=== PATIENT | male | born 2000 | race Caucasian/White ===

== ENCOUNTER → 2019-11-24 14:36 | Outpatient (BNVA) | payer OTHER, SELFPAY | PROVIDERS: Family Provider Nurse Practitioner; PCP Nurse Practitioner; Visit Provider Nurse Practitioner Family | DX: Z11.59 Encounter for screening for other viral diseases (principal) | CPT/HCPCS: 87635 ==

== ENCOUNTER 2019-12-22 00:16 | Emergency (ER) | payer SELFPAY ==
[2019-12-22 00:20] VITALS: BP 131/81; RESP 17; TEMP 36.7; O2SAT 98; BMI 30.1
--- NOTE | 2019-12-22 00:23 | XRR_ITS ---
PROCEDURE INFORMATION: Exam: XR Right Foot Complete Exam date and time: 12/22/2019 12:37 AM Age: 19 years old Clinical indication: Injury or trauma; Injury history: Hit great toe on sidewalk; Initial encounter; Toes; Right; Injury date: 12/21/19; Patient HX: C/O pain after hitting RT great toe on sidewalk- abrasion noted TECHNIQUE: Imaging protocol: XR Right foot. Views: 3 or more views. COMPARISON: CR Toe RIGHT [id number] 06/13/2018 6:59 PM FINDINGS: Bones/joints: hindfoot-midfoot and midfoot-forefoot articulations are normal. metatarsals and the phalanges without an acute process. subtalar joint and the tibiotalar joint appears normal. Soft tissues: Normal. XR/XR foot RT min 3V* [id number] IMPRESSION: Normal foot
--- NOTE | 2019-12-22 01:35 | W.ED.EXTPRO ---
HPI - Extremity Problem General: Chief complaint: Extremity Injury, Lower Stated complaint: FALL Time Seen by Provider: 12/22/19 01:32 History of Present Illness: HPI Narrative: Patient is a 19-year-old male who comes to the ED with right foot injury. Patient says he tripped over his dog causing him to slide his right foot into a concrete wall. He now has 2 abrasions on his right foot. Patient says he had his last tetanus within the past 2 years. Patient says all of his pain is from the 2 abrasions on the skin of his right foot. Associated symptoms: Deny chest pain, fever(s) or rash Review of Systems Const: Denies: fever(s), chills or fatigue Eyes: Denies: change in vision or eye discomfort ENMT: Denies: throat pain, odynophagia, nasal discharge or nasal congestion Card: Denies: chest pain, palpitations, edema, swelling of feet/ankles, dyspnea on exertion or orthopnea Resp: Denies: dyspnea, productive cough or non-productive cough GI: Denies: abdominal pain, nausea, vomiting, diarrhea, constipation or hematochezia : Denies: flank pain, difficulty urinating, dysuria or hematuria Musc: Denies: neck pain, back pain or extremity swelling Skin/Breast: Reports: new lesions (2 abrasions on right foot.); Denies: rash Neuro: Denies: headache(s), numbness in extremities or weakness in extremities [facility] PFSH: Social History Smoking and tobacco status: never smoked Physical Exam Const: COMMON NORMALS: no acute distress, patient oriented x3, healthy appearing and alert GENERAL APPEARANCE: cooperative and comfortable HENMT: COMMON NORMALS: normocephalic HEAD & SCALP: normocephalic MOUTH: Normal oral and palatal mucosa present THROAT: posterior oropharynx normal and uvula midline Neck/C-Spine: COMMON NORMALS: supple GENERAL: Yes normal visual inspection Resp: COMMON NORMALS: normal respiratory effort, No retractions, No use of accessory muscles and clear to auscultation bilaterally AUSCULTATION: clear to auscultation bilaterally Cardio: COMMON NORMALS: regular rate, regular rhythm, S1 normal heart sound present, S2 normal heart sound present, No gallops present (Cardio), No clicks present (Cardio), No murmurs present (Cardio) and Peripheral pulses 2+ throughout RATE: regular rate RHYTHM: regular rhythm HEART SOUNDS: S1 normal heart sound present and S2 normal heart sound present PERIPHERAL PULSES: Peripheral pulses 2+ throughout GI: COMMON NORMALS: Normal to inspection, nondistended, normoactive bowel sounds present, Soft to palpation, non-tender and no masses PALPATION: Yes Soft to palpation : COMMON NORMALS: Yes no CVA tenderness BLADDER/KIDNEY EXAM: Yes no CVA tenderness Back/Pelvis: COMMON NORMALS: no CVA tenderness Extremity: NARRATIVE EXTREMITY EXAM: 2 superficial abrasions on right foot. GENERAL: Yes normal exam except as noted Neuro: COMMON NORMALS: patient oriented x3 and moves all extremities SENSORIUM/ORIENTATION: Yes alert Skin: GENERAL SKIN EXAM: dry skin TRAUMA: abrasion (2 superficial abrasions on right foot. No active bleeding.) Course Vital Signs: Vital signs: Vital Signs Temperature 98.0 F 12/22/19 00:20 Pulse Rate 78 12/22/19 02:32 Respiratory Rate 16 12/22/19 02:32 Blood Pressure 117/77 12/22/19 02:32 Pulse Oximetry 100 12/22/19 02:32 MDM - Extremity (Nontraumatic) MDM Narrative: Medical decision making narrative: Patient is a 19-year-old male comes the ED with right foot injury. Patient has 2 superficial abrasions on right foot. Patient had tetanus shot within the last 2 years. Right foot x-ray showed no acute fractures or findings. The 2 superficial abrasions were irrigated with normal saline and bacitracin and bandages were placed over the 2 abrasions by the nurse. Patient was also given prophylactic prescription for cephalexin. Patient was told to clean and re-bandage and apply bacitracin daily. Follow-up with PCP in 7 to 10 days. Return to ED precautions given and I discussed with him signs and symptoms of infection. Patient understood and agreed with plan. Imaging Data^: Xray Ortho: Attestation: I personally reviewed and interpreted this imaging study as follows: My impression: Right foot x-ray showed no acute fractures or findings. Discharge Plan Discharge Patient Disposition: Home Clinical Impression: Abrasion foot/toe Qualifiers: Encounter type: initial encounter Laterality: right Qualified Code(s): S90.811A - Abrasion, right foot, initial encounter Condition: Stable Prescriptions: New cephalexin 500 mg capsule 500 mg PO TID 4 Days Qty: 12 RF: 0 Neosporin ([id number]) 3.5mg-400 unit- 5,000 unit/gram ointment 1 applic TOPICAL DAILY Qty: 14.2 RF: 0 No Action No Known Home Medications RF: 0 Discharge Orders: Discharge Order (Routine); Ordered 12/22/19 Ordered By: Jaime Bell Discharge Diet: Regular Discharge Activity: Increase activity as tolerated Patient Instructions: Abrasion (ED) Activity Restrictions/Additional Instructions: Follow-up with medical provider as directed in 7-10 days. Take medications as prescribed. Change bandage, clean and reapply Neosporin daily. Watch for signs of infection such as increased redness, tenderness, warmth and puslike drainage. If you see any signs of infection return to the ED or urgent care to be reevaluated. Return to the ER or your medical provider if condition worsens. Please read and understand discharge instructions. If any questions, please ask. 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
[2019-12-22] MEDS: bacitracin ointment Pkt 1 EACH TOPICAL (02:27)
[2019-12-22] MEDS: cephALEXin 500 mg Capsule PO (02:28)
[2019-12-22 02:32] VITALS: BP 117/77; PULSE 78; RESP 16; O2SAT 100
== END 2019-12-22 02:35 | disposition home or self-care (01) ==
PROVIDERS: Emergency Provider Physician Assistant
DX: S90.811A Abrasion, right foot, initial encounter (principal); W01.0XXA Fall on same level from slipping, tripping and stumbling without subsequent striking against object, initial encounter
CPT/HCPCS: 12345; 73630; 99281; 99283

== ENCOUNTER 2020-01-15 18:16 | Emergency (ER) | payer SELFPAY ==
[2020-01-15 18:18] VITALS: BP 127/71; PULSE 132; RESP 16; TEMP 37.6; O2SAT 98; BMI 28.7
--- NOTE | 2020-01-15 18:57 | ED_ITS ---
HPI - Nausea/Vomiting/Diarrhea General: Chief complaint: Nausea/Vomiting/Diarrhea Stated complaint: vomiting/fever x 2days Time Seen by Provider: 01/15/20 18:54 History of Present Illness: HPI Narrative: Patient is a 19-year-old male comes to the ED with fever, nausea and vomiting. Patient says symptoms started yesterday. He states his nausea is rated 10 out of 10 and he has had approximately 3 episodes of emesis since yesterday. He has a decreased appet ite, but has been able to drink water and keep it down. Patient says he has some mild abdominal pain in the periumbilical region. Denies diarrhea, constipation, dysuria, hematuria, chest pain, shortness of breath, cough, sore throat, nasal drainage and congestion. Patient also reports having a headache. Associated nausea: Yes Associated symtoms: Reports headache(s) and nausea; Denies change in vision, chest pain, dysuria, fatigue or palpitations Review of Systems Const: Reports: fever(s); Denies: chills or fatigue Eyes: Denies: change in vision or eye discomfort ENMT: Denies: throat pain, odynophagia, nasal discharge or nasal congestion Card: Denies: chest pain, palpitations, edema, swelling of feet/ankles, dyspnea on exertion or orthopnea Resp: Denies: dyspnea, productive cough or non-productive cough GI: Reports: abdominal pain, nausea and vomiting; Denies: diarrhea, constipation or hematochezia : Denies: flank pain, difficulty urinating, dysuria or hematuria Musc: Denies: neck pain, back pain or extremity swelling Skin/Breast: Denies: rash or new lesions Neuro: Reports: headache(s); Denies: numbness in extremities or weakness in extremities PFS ED PFSH: Social History Smoking and tobacco status: never smoked Physical Exam Const: COMMON NORMALS: no acute distress, patient oriented x3, healthy appear ing and alert GENERAL APPEARANCE: cooperative and comfortable HENMT: COMMON NORMALS: normocephalic HEAD & SCALP: normocephalic MOUTH: Normal oral and palatal mucosa present THROAT: posterior oropharynx normal and uvula midline Eye: COMMON NORMALS: Equal, round and reactive pupils present PUPIL: Yes Equal, round and reactive pupils present Neck/C-Spine: COMMON NORMALS: supple GENERAL: Yes normal visual inspection Resp: COMMON NORMALS: normal respiratory effort, No retractions, No use of accessory muscles and clear to auscultation bilaterally AUSCULTATION: clear to auscultation bilaterally Cardio: COMMON NORMALS: regular rate, regular rhythm, S1 normal heart sound present, S2 normal heart sound present, No gallops present (Cardio), No clicks present (Cardio), No murmurs present (Cardio) and Peripheral pulses 2+ throughout RATE: regular rate RHYTHM: regular rhythm HEART SOUNDS: S1 normal heart sound present and S2 normal heart sound present PERIPHERAL PULSES: Peripheral pulses 2+ throughout GI: COMMON NORMALS: Normal to inspection, nondistended, normoactive bowel sounds present, Soft to palpation and no masses PALPATION: Yes Soft to palpation and Yes Tenderness to palpation present (GI) Details: other (Periumbilical?mild tenderness.) : COMMON NORMALS: Yes no CVA tenderness BLADDER/KIDNEY EXAM: Yes no CVA tenderness Back/Pelvis: COMMON NORMALS: no CVA tenderness Extremity: COMMON NORMALS: normal to inspection and no pedal edema Neuro: COMMON NORMALS: patient oriented x3 and moves all extremities SENSORIUM/ORIENTATION: Yes alert Skin: COMMON NORMALS: no rashes or lesions noted GENERAL SKIN EXAM: no rashes or lesions noted and dry skin Course Reevaluation(s): Reevaluation #1: Patient headache and nausea has improved greatly with Zofran and Toradol. He was also given IV fluids. Patient says he feels a lot better and is ready to go home. Time: 20:45 Vital Signs: Vital signs: Vital Signs Temperature 99.7 F H 01/15/20 18:18 Pulse Rate 71 01/15/20 22:08 Respiratory Rate 16 01/15/20 21:07 Blood Pressure 136/62 01/15/20 22:08 Pulse Oximetry 97 01/15/20 22:08 MDM - Nausea/Vomiting/Diarrhea MDM Narrative: Medical decision making narrative: Patient is a 19-year-old male who comes to the ED with nausea and vomiting, fever and headache. Symptoms started yesterday. Patient had no cough, congestion, sore throat, shortness of breath or chest pain. Patient was tested for COVID-19 a week ago and was negative. White blood cell count 12.6 and rest of CBC and CMP was unremarkable. UA showed no signs of UTI. Blood pressure 136/62, pulse 71, respirations 16, temp 99.7 and O2 sat 97% on room air. CT of the abdomen showed no acute abdominal findings. There was a right lung nodule seen, and radiologist recommended further evaluation via outpatient. I discussed CT findings with patient and told him about the lung nodule and that he needs to talk to his PCP about further evaluation of lung nodule. Patient was given IV fluids, Zofran and Toradol while here in the ED and his headache greatly improved and his nausea greatly improved. Patient was diagnosed with nausea vomiting and sent home with a prescription for Zofran. He was told to follow-up with his PCP in 7 to 10 days. Return precautions given. Patient understood and agreed with plan. Lab Data: Attestation: I reviewed the patient's lab results. Labs: Lab Results 01/15/20 01/15/20 01/15/20 Range/Units 19:30 19:30 21:06 WBC 12.6 (4.5-13.0) 10^3/ uL RBC 5.82 H (4.1-5.3) 10^6/u L Hgb 17.5 H (11.7-16.6) g/dL Hct 51.3 (42.0-52.0) % MCV 88.1 (80-94) fL MCH 30.1 (28.0-34.0) pg MCHC 34.1 (30.0-36.0) g/dL RDW 11.9 L (12.1-15.1) % Plt Count 263 (130-400) 10^3/c mm MPV 10.1 (7.4-10.4) fL Neut % (Auto) 80.0 % Lymph % (Auto) 7.8 % Dooly % (Auto) 11.7 % Eos % (Auto) 0.0 % Baso % (Auto) 0.3 % Neut # (Auto) 10.03 H (1.8-8.0) 10^3/u L Lymph # (Auto) 1.0 L (1.5-6.5) 10^3/u L Dooly # (Auto) 1.5 H (0.2-0.9) 10^3/u L Eos # (Auto) 0.0 (0.0-0.8) 10^3/u L Baso # (Auto) 0.0 (0.0-0.1) 10^3/u L Nucleated RBC % (a uto) 0 % Nucleated RBCs # 0.0 /100WBC Sodium 134 L (136-145) mmol/L Potassium 4.0 (3.5-5.1) mmol/L Chloride 96 L (98-107) mmol/L Carbon Dioxide 26 (22-29) mmol/L Anion Gap 16.0 (5-19) BUN 16 (6-20) mg/dL Creatinine 1.0 (0.7-1.2) mg/dL GFR Calculation 95.3 (90-130) mL/min Glucose 112 (65-115) mg/dL Calculated Osmolal ity 280 L (285-295) mOsm/k g Calcium 9.4 (8.5-10.5) mg/dL Total Bilirubin 0.9 (0.15-1.2) mg/dL AST 19 (0-40) U/L ALT 29 (0-41) U/L Alkaline Phosphata se 70 (40-130) IU/L Total Protein 7.8 (6.6-8.7) g/dL Albumin 4.7 (3.5-5.2) g/dL Globulin 3.1 (1.3-4.6) g/dL Lipase 16 (13-60) U/L Urine Color Yellow (Yellow) Urine Appearance Clear (CLEAR) Urine pH 6.5 (5-7) Ur Specific Gravit y 1.005 (1.005-1.030) Urine Protein 1+ H (Negative) Urine Glucose (UA) Norm (Normal) Urine Ketones 1+ H (Negative) Urine Blood 2+ H (Negative) Urine Nitrate Negative (Negative) Urine Bilirubin 1+ H (Negative) Urine Urobilinogen 4+ H (Negative) mg/dL Ur Leukocyte Kiesha ase Trace H (Negative) Urine RBC 0-4 H (0-2) /hpf Urine WBC 0-4 H (0-5) /hpf Ur Squamous Epith Cells 15-25 H (0-5) /hpf Amorphous Sediment Not Reportable Urine Bacteria Trace (NONE) /hpf Imaging Data^: CT Abd/Pel: Attestation: I personally reviewed and interpreted this imaging study as follows: Radiologist's impression: [facility] [address] [place] [address] CT Scan Report Signed Patient: Francesco Dumont Unit #: [id number] : 2000 Age/Sex: 19 / M ADM Date: 01/15/20 Loc: ER Room/Bed: Attending Dr: Ordering Provider/Ordering MD: Jaime Bell Date of Service: 01/15/20 Procedure(s): CT abdomen pelvis w con* [id number] Accession Number(s): [id number] Report Number: [id number] PROCEDURE INFORMATION: Exam: CT Abdomen And Pelvis With Contrast Exam date and time: 01/15/2020 7:41 PM Age: 19 years old Clinical indication: Nausea and vomiting; Patient HX: C/O n/v and fever; Additional info: Abdominal pain with nausea and vomiting and decreased appetite. TECHNIQUE: Imaging protocol: Computed tomography of the abdomen and pelvis with intravenous contrast. Radiation optimization: All CT scans at this facility use at least one of these dose optimization techniques: automated exposure control; mA and/or kV adjustment per patient size (includes targeted exams where dose is matched to clinical indication); or iterative reconstruction. Contrast material: OMNI 300; Contrast volume: 95 ml; Contrast route: INTRAVENOUS (IV); COMPARISON: No relevant prior studies available. RADIATION DOSE METRICS: Total DLP (mGy-cm): 645.58 FINDINGS: Lungs: 4 mm right lower lobe nodule. Liver: Normal. No mass. Gallbladder and bile ducts: Normal. No calcified stones. No ductal dilation. Pancreas: Normal. No ductal dilation. Spleen: Normal. No splenomegaly. Adrenals: Normal. No mass. Kidneys and ureters: Normal. No hydronephrosis. Stomach and bowel: Unremarkable. No obstruction. No mucosal thickening. Appendix: No evidence of appendicitis. Intraperitoneal space: Unremarkable. No free air. No significant fluid collection. Vasculature: Unremarkable. No abdominal aortic aneurysm. Lymph nodes: Unremarkable. No enlarged lymph nodes. Urinary bladder: Unremarkable as visualized. Reproductive: Unremarkable as visualized. Bones/joints: Leftward lumbar curvature. No compression fracture. Soft tissues: Unremarkable. CT/CT abdomen pelvis w con* [id number] IMPRESSION: 1. No acute abnormality identified in the abdomen or pelvis. 2. 4 mm right lung nodule. If the patient does not have known cancer, follow up should be based on clinical information because of the low risk of cancer in this age group. (Reference: Shelby) References: deena Tamez al. Guidelines for Management of Incidental Pulmonary Nodules Detected on CT Images: From the Fleischner Society 2017. Radiology. 2017;284(1):228-243. Radiation Dose CTDIVOL = (mGy): DLP = 645.58 (mGy-cm) Dictated By: Jarocho Mcgee Signed By: Jarocho Mcgee Signed Date/Time: 01/15/202027 DD/ 26 Discharge Plan Discharge Patient Disposition: Home Clinical Impression: Nausea and vomiting Qualifiers: Vomiting type: unspecified Vomiting Intractability: non-intractable Qualified Code(s): R11.2 - Nausea with vomiting, unspecified Condition: Stable Prescriptions: New Zofran 4 mg tablet 4 mg PO Q8H Qty: 30 RF: 0 No Action No Known Home Medications RF: 0 Neosporin (hva-gbo-mqrpj) 3.5mg-400 unit- 5,000 unit/gram ointment 1 applic TOPICAL DAILY Qty: 14.2 RF: 0 Discharge Orders: Discharge Order (Routine); Ordered 01/15/20 Ordered By: Jaime Bell Discharge Diet: Advance as tolerated Discharge Activity: Resume usual activity Patient Instructions: Acute Nausea and Vomiting (ED) Activity Restrictions/Additional Instructions: Follow-up with medical provider as directed in 7-10 days. Discussed with your primary care physician about the lung nodule seen on CT scanning. Take medications as prescribed. Return to the ER or your medical provider if condition worsens. Please read and understand discharge instructions. If any questions, please ask. Discharge Date/Time: 01/15/20 22:10 Coding Level of Care Code ED Water Maintenance Supervisor for Fely Fwd Exam Comprehensive
[2020-01-15 19:12] VITALS: BP 142/90; RESP 18; O2SAT 96
--- NOTE | 2020-01-15 19:14 | CTR_ITS ---
PROCEDURE INFORMATION: Exam: CT Abdomen And Pelvis With Contrast Exam date and time: 01/15/2020 7:41 PM Age: 19 years old Clinical indication: Nausea and vomiting; Patient HX: C/O n/v and fever; Additional info: Abdominal pain with nausea and vomiting and decreased appetite. TECHNIQUE: Imaging protocol: Computed tomography of the abdomen and pelvis with intravenous contrast. Radiation optimization: All CT scans at this facility use at least one of these dose optimization techniques: automated exposure control; mA and/or kV adjustment per patient size (includes targeted exams where dose is matched to clinical indication); or iterative reconstruction. Contrast material: OMNI 300; Contrast volume: 95 ml; Contrast route: INTRAVENOUS (IV); COMPARISON: No relevant prior studies available. RADIATION DOSE METRICS: Total DLP (mGy-cm): 645.58 FINDINGS: Lungs: 4 mm right lower lobe nodule. Liver: Normal. No mass. Gallbladder and bile ducts: Normal. No calcified stones. No ductal dilation. Pancreas: Normal. No ductal dilation. Spleen: Normal. No splenomegaly. Adrenals: Normal. No mass. Kidneys and ureters: Normal. No hydronephrosis. Stomach and bowel: Unremarkable. No obstruction. No mucosal thickening. Appendix: No evidence of appendicitis. Intraperitoneal space: Unremarkable. No free air. No significant fluid collection. Vasculature: Unremarkable. No abdominal aortic aneurysm. Lymph nodes: Unremarkable. No enlarged lymph nodes. Urinary bladder: Unremarkable as visualized. Reproductive: Unremarkable as visualized. Bones/joints: Leftward lumbar curvature. No compression fracture. Soft tissues: Unremarkable. CT/CT abdomen pelvis w con* [id number] IMPRESSION: 1. No acute abnormality identified in the abdomen or pelvis. 2. 4 mm right lung nodule. If the patient does not have known cancer, follow up should be based on clinical information because of the low risk of cancer in this age group. (Reference: Shelby) References: Shelby Doe, et al. Guidelines for Management of Incidental Pulmonary Nodules Detected on CT Images: From the Fleischner Society 2017. Radiology. 2017;284(1):228-243. Radiation Dose CTDIVOL = (mGy): DLP = 645.58 (mGy-cm)
[2020-01-15] MEDS: ketorolac 30 mg/mL INJ IVP (19:37)
[2020-01-15] MEDS: sodium chloride 0.9% 1,000 ML 999 ML IV (19:37)
[2020-01-15] MEDS: ondansetron 2 mg/ML SDV 2 mL 4 MG IVP ×2 (19:37→20:59)
[2020-01-15] MEDS: iohexol 300 mg/mL 100 mL Btl IV (19:48)
[2020-01-15 20:06] LABS: Basophils % 0.3 %; Hematocrit 51.3 % (42.0-52.0); Hemoglobin 17.5 g/dL (11.7-16.6); Lymphocytes % 7.8 %; Mean Corpuscular HGB Conc 34.1 g/dL (30.0-36.0); Mean Corpuscular Hemoglobin 30.1 pg (28.0-34.0); Mean Corpuscular Volume 88.1 fL (80-94); Mean Platelet Volume 10.1 fL (7.4-10.4); Monocytes # 1.5 10^3/uL (0.2-0.9); Monocytes % 11.7 %; Neutrophils # 10.03 10^3/uL (1.8-8.0); Nucleated Red Blood Cells % 0 %; Platelet Count 263 10^3/cmm (130-400); Red Blood Count 5.82 10^6/uL (4.1-5.3); Red Cell Distribution Width 11.9 % (12.1-15.1); White Blood Count 12.6 10^3/uL (4.5-13.0)
[2020-01-15 20:08] VITALS: BP 140/68; PULSE 92; RESP 18; O2SAT 98
[2020-01-15 20:12] LABS: Alanine Aminotransferase 29 U/L (0-41); Albumin Level 4.7 g/dL (3.5-5.2); Alkaline Phosphatase 70 IU/L (40-130); Aspartate Amino Transferase 19 U/L (0-40); Blood Urea Nitrogen 16 mg/dL (6-20); Calcium 9.4 mg/dL (8.5-10.5); Carbon Dioxide 26 mmol/L (22-29); Chloride 96 mmol/L (98-107); Globulin 3.1 g/dL (1.3-4.6); Glomerular Filtration Rate 95.3 mL/min (90-130); Glucose 112 mg/dL (65-115); Lipase 16 U/L (13-60); Osmolality Calculated 280 mOsm/kg (285-295); Sodium 134 mmol/L (136-145); Total Bilirubin 0.9 mg/dL (0.15-1.2); Total Protein 7.8 g/dL (6.6-8.7)
[2020-01-15 21:07] VITALS: BP 170/77; PULSE 76; RESP 16; O2SAT 95
[2020-01-15 21:45] VITALS: BP 170/77; PULSE 79; O2SAT 97
[2020-01-15 21:48] LABS: Bilirubin Urine 1+ (Negative); Blood Urine 2+ (Negative); Glucose Urine UA Norm (Normal); Ketones Urine 1+ (Negative); Nitrate Urine Negative (Negative); Protein Urine 1+ (Negative); Specific Gravity, Urine 1.005 (1.005-1.030); Urine Appearance Clear (CLEAR); Urine Color Yellow (Yellow); Urobilinogen Urine 4+ mg/dL (Negative); pH Urine 6.5 (5-7)
[2020-01-15 21:49] LABS: Leukocyte Esterase Urine Trace (Negative)
[2020-01-15 21:50] LABS: Add Urine Culture? No; Bacteria Urine TRACE /hpf; RBC Urine 0-4 /hpf (0-2); Squamous Epithelial Cell Urine 15-25 /hpf (0-5); WBC Urine 0-4 /hpf (0-5)
[2020-01-15 22:08] VITALS: BP 136/62; PULSE 71; O2SAT 97
== END 2020-01-15 22:10 | disposition home or self-care (01) ==
PROVIDERS: Emergency Provider Physician Assistant
DX: R11.2 Nausea with vomiting, unspecified (principal)
CPT/HCPCS: 12345; 36415; 74177; 80053; 81001; 83690; 85025; 87040; 96361; 96374; 96375; 96376; 99283; J1885; J2405; J7030; Q9967

== ENCOUNTER 2020-01-16 18:11 | Emergency (ER) | payer OTHER, SELFPAY ==
[2020-01-16 18:30] VITALS: BP 118/75; PULSE 130; RESP 16; TEMP 37.7; O2SAT 97; BMI 28.7
--- NOTE | 2020-01-16 19:17 | ED_ITS ---
HPI - General Adult General: Chief complaint: General Medical Stated complaint: CHOPRA, abd pain, nausea, sore throat Time Seen by Provider: 01/16/20 19:14 History of Present Illness: HPI narrative: Patient is a 19-year-old male who comes to the ED with nausea vomiting, fever, headache and sore throat. Patient was seen here last night for same complaint. He was sent home with a prescription for Zofran and he said he did not fill today. He is still having nausea and vomiting. Patient does say that he has not had a bowel movement and has been constipated for the past 3 to 4 days. Associated symptoms: Reports headache(s), nausea and vomiting; Deny chest pain, dyspnea, rash or palpitations Review of Systems Const: Reports: fever(s); Denies: chills or fatigue Eyes: Denies: change in vision or eye discomfort ENMT: Denies: throat pain, odynophagia, nasal discharge or nasal congestion Card: Denies: chest pain, palpitations, edema, swelling of feet/ankles, dyspnea on exertion or orthopnea Resp: Denies: dyspnea, productive cough or non-productive cough GI: Reports: nausea, vomiting and constipation; Denies: abdominal pain, diarrhea or hematochezia : Denies: flank pain, difficulty urinating, dysuria or hematuria Musc: Denies: neck pain, back pain or extremity swelling Skin/Breast: Denies: rash or new lesions Neuro: Reports: headache(s); Denies: numbness in extremities or weakness in extremities PFS ED PFSH: Social History Smoking and tobacco status: never smoked Alcohol intake: never Substance/Drug Use: former Physical Exam Const: COMMON NORMALS: no acute distress, patient oriented x3 and alert GENERAL APPEARANCE: cooperative and comfortable HENMT: COMMON NORMALS: normocephalic HEAD & SCALP: normocephalic MOUTH: Normal oral and palatal mucosa present THROAT: posterior oropharynx normal and uvula midline Neck/C-Spine: COMMON NORMALS: supple GENERAL: Yes normal visual inspection Resp: COMMON NORMALS: normal respiratory effort, No retractions, No use of accessory muscles and clear to auscultation bilaterally AUSCULTATION: clear to auscultation bilaterally Cardio: COMMON NORMALS: regular rate, regular rhythm, S1 normal heart sound present, S2 normal heart sound present, No gallops present (Cardio), No clicks present (Cardio), No murmurs present (Cardio) and Peripheral pulses 2+ throughout RATE: regular rate RHYTHM: regular rhythm HEART SOUNDS: S1 normal heart sound present and S2 normal heart sound present PERIPHERAL PULSES: Peripheral pulses 2+ throughout GI: COMMON NORMALS: Normal to inspection, nondistended, normoactive bowel sounds present, Soft to palpation, non-tender and no masses PALPATION: Yes Soft to palpation : COMMON NORMALS: Yes no CVA tenderness BLADDER/KIDNEY EXAM: Yes no CVA tenderness Back/Pelvis: COMMON NORMALS: no CVA tenderness Extremity: COMMON NORMALS: normal to inspection Neuro: COMMON NORMALS: patient oriented x3 and moves all extremities SENSORIUM/ORIENTATION: Yes alert Skin: COMMON NORMALS: no rashes or lesions noted GENERAL SKIN EXAM: no rashes or lesions noted and dry skin Course Reevaluation(s): Reevaluation #1: Patient's nausea and headache have improved greatly after getting IV fluids, Zofran and ibuprofen. Vital Signs: Vital signs: Vital Signs Temperature 99.8 F H 01/16/20 18:30 Pulse Rate 87 01/16/20 22:37 Respiratory Rate 16 01/16/20 22:37 Blood Pressure 121/73 01/16/20 22:37 Pulse Oximetry 99 01/16/20 22:37 MDM - General Adult MDM Narrative: Medical decision making narrative: Patient is a 19-year-old male comes to the ED with nausea and vomiting, headache and fever. He was seen here in the ED for same symptoms yesterday. He was sent home with a prescription for Zofran to help with nausea and vomiting. Patient did not fill prescription and returns today with same symptoms. Patient did add that he has been constipated for the past couple days as well. CBC, CMP were unremarkable. Strep test negative. Patient was given IV fluids, Zofran and ibuprofen and his symptoms greatly improved. Patient was discharged with a prescription for MiraLAX and told to fill prescription of Zofran to help with nausea and vomiting. Return to ED precautions given. Follow-up with PCP in 7 to 10 days. Drink plenty of fluids and stay hydrated. Patient understood and agreed with plan. Lab Data: Attestation: I reviewed the patient's lab results. Labs: Lab Results 01/16/20 01/16/20 01/16/20 Range/Units 19:25 19:25 19:31 WBC 13.0 (4.5-13.0) 10^3/ uL RBC 5.60 H (4.1-5.3) 10^6/u L Hgb 16.8 H (11.7-16.6) g/dL Hct 49.4 (42.0-52.0) % MCV 88.2 (80-94) fL MCH 30.0 (28.0-34.0) pg MCHC 34.0 (30.0-36.0) g/dL RDW 11.6 L (12.1-15.1) % Plt Count 226 (130-400) 10^3/c mm MPV 9.4 (7.4-10.4) fL Neut % (Auto) 77.0 % Lymph % (Auto) 10.1 % [place] % (Auto) 12.4 % Eos % (Auto) 0.0 % Baso % (Auto) 0.2 % Neut # (Auto) 10.02 H (1.8-8.0) 10^3/u L Lymph # (Auto) 1.3 L (1.5-6.5) 10^3/u L [place] # (Auto) 1.6 H (0.2-0.9) 10^3/u L Eos # (Auto) 0.0 (0.0-0.8) 10^3/u L Baso # (Auto) 0.0 (0.0-0.1) 10^3/u L Nucleated RBC % (a uto) 0 % Nucleated RBCs # 0.0 /100WBC Sodium 132 L (136-145) mmol/L Potassium 4.3 (3.5-5.1) mmol/L Chloride 97 L (98-107) mmol/L Carbon Dioxide 24 (22-29) mmol/L Anion Gap 15.3 (5-19) BUN 15 (6-20) mg/dL Creatinine 0.9 (0.7-1.2) mg/dL GFR Calculation 107.6 (90-130) mL/min Glucose 103 (65-115) mg/dL Calculated Osmolal ity 275 L (285-295) mOsm/k g Calcium 9.0 (8.5-10.5) mg/dL Total Bilirubin 0.7 (0.15-1.2) mg/dL AST 16 (0-40) U/L ALT 22 (0-41) U/L Alkaline Phosphata se 59 (40-130) IU/L Total Protein 7.3 (6.6-8.7) g/dL Albumin 4.3 (3.5-5.2) g/dL Globulin 3.0 (1.3-4.6) g/dL Lipase 15 (13-60) U/L Urine Color Yellow (Yellow) Urine Appearance Clear (CLEAR) Urine pH 5 (5-7) Ur Specific Gravit y 1.020 (1.005-1.030) Urine Protein Neg (Negative) Urine Glucose (UA) Norm (Normal) Urine Ketones 2+ H (Negative) Urine Blood 2+ H (Negative) Urine Nitrate Negative (Negative) Urine Bilirubin 1+ H (Negative) Urine Urobilinogen 4 H (Negative) mg/dL Ur Leukocyte Kiesha ase Negative (Negative) Urine RBC 0-4 H (0-2) /hpf Urine WBC 0-4 H (0-5) /hpf Ur Squamous Epith Cells 15-25 H (0-5) /hpf Amorphous Sediment Not Reportable Urine Bacteria 1+ H (NONE) /hpf Urine Mucus 2+ /hpf Group A Strep Rapi d (Negative) 01/16/20 Range/Units 21:08 WBC (4.5-13.0) 10^3/ uL RBC (4.1-5.3) 10^6/u L Hgb (11.7-16.6) g/dL Hct (42.0-52.0) % MCV (80-94) fL MCH (28.0-34.0) pg MCHC (30.0-36.0) g/dL RDW (12.1-15.1) % Plt Count (130-400) 10^3/c mm MPV (7.4-10.4) fL Neut % (Auto) % Lymph % (Auto) % Med[place] % (Auto) % Eos % (Auto) % Baso % (Auto) % Neut # (Auto) (1.8-8.0) 10^3/u L Lymph # (Auto) (1.5-6.5) 10^3/u L Med[place] # (Auto) (0.2-0.9) 10^3/u L Eos # (Auto) (0.0-0.8) 10^3/u L Baso # (Auto) (0.0-0.1) 10^3/u L Nucleated RBC % (a uto) % Nucleated RBCs # /100WBC Sodium (136-145) mmol/L Potassium (3.5-5.1) mmol/L Chloride (98-107) mmol/L Carbon Dioxide (22-29) mmol/L Anion Gap (5-19) BUN (6-20) mg/dL Creatinine (0.7-1.2) mg/dL GFR Calculation (90-130) mL/min Glucose (65-115) mg/dL Calculated Osmolal ity (285-295) mOsm/k g Calcium (8.5-10.5) mg/dL Total Bilirubin (0.15-1.2) mg/dL AST (0-40) U/L ALT (0-41) U/L Alkaline Phosphata se (40-130) IU/L Total Protein (6.6-8.7) g/dL Albumin (3.5-5.2) g/dL Globulin (1.3-4.6) g/dL Lipase (13-60) U/L Urine Color (Yellow) Urine Appearance (CLEAR) Urine pH (5-7) Ur Specific Gravit y (1.005-1.030) Urine Protein (Negative) Urine Glucose (UA) (Normal) Urine Ketones (Negative) Urine Blood (Negative) Urine Nitrate (Negative) Urine Bilirubin (Negative) Urine Urobilinogen (Negative) mg/dL Ur Leukocyte Kiesha ase (Negative) Urine RBC (0-2) /hpf Urine WBC (0-5) /hpf Ur Squamous Epith Cells (0-5) /hpf Amorphous Sediment Urine Bacteria (NONE) /hpf Urine Mucus /hpf Group A Strep Rapi d Negative (Negative) Discharge Plan Discharge Patient Disposition: Home Clinical Impression: Viral syndrome, Encounter for screening laboratory testing for COVID-19 virus Constipation Qualifiers: Constipation type: unspecified constipation type Qualified Code(s): K59.00 - Constipation, unspecified Condition: Stable Prescriptions: New Miralax 17 gram/dose powder 17 gm PO DAILY PRN (Reason: constipation) Qty: 119 RF: 0 No Action No Known Home Medications RF: 0 Neosporin ([id number]) 3.5mg-400 unit- 5,000 unit/gram ointment 1 applic TOPICAL DAILY Qty: 14.2 RF: 0 Zofran 4 mg tablet 4 mg PO Q8H Qty: 30 RF: 0 Discharge Orders: Discharge Order (Routine); Ordered 01/16/20 Ordered By: Jaime Bell Discharge Diet: Advance as tolerated Discharge Activity: Resume usual activity Patient Instructions: Viral Syndrome (ED), Viral Syndrome - Adult Activity Restrictions/Additional Instructions: Follow-up with medical provider as directed in 7-10 days. COVID testing was performed and sent to lab and results will be back in 2 to 3 days. Self quarantine for the next 3 days or up to 12 days pending on COVID testing results. Contact [facility] in 2 to 3 days to get results or [facility] will contact you with results. Take ibuprofen or Tylenol for fevers. Drink plenty of fluids and stay hydrated. Take your previously prescribed Zofran to help with nausea. Return to the ER or your medical provider if condition worsens. Please read and understand discharge instructions. If any questions, please ask. 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
[2020-01-16] MEDS: sodium chloride 0.9% 1,000 ML 999 ML IV (19:34)
[2020-01-16] MEDS: ondansetron 2 mg/ML SDV 2 mL 4 MG IVP (19:34)
[2020-01-16 19:37] LABS: Basophils % 0.2 %; Hematocrit 49.4 % (42.0-52.0); Hemoglobin 16.8 g/dL (11.7-16.6); Lymphocytes # 1.3 10^3/uL (1.5-6.5); Lymphocytes % 10.1 %; Mean Corpuscular Volume 88.2 fL (80-94); Mean Platelet Volume 9.4 fL (7.4-10.4); Monocytes # 1.6 10^3/uL (0.2-0.9); Monocytes % 12.4 %; Neutrophils # 10.02 10^3/uL (1.8-8.0); Nucleated Red Blood Cells % 0 %; Platelet Count 226 10^3/cmm (130-400); Red Cell Distribution Width 11.6 % (12.1-15.1)
[2020-01-16 20:09] LABS: Alanine Aminotransferase 22 U/L (0-41); Albumin Level 4.3 g/dL (3.5-5.2); Alkaline Phosphatase 59 IU/L (40-130); Anion Gap 15.3 (5-19); Aspartate Amino Transferase 16 U/L (0-40); Blood Urea Nitrogen 15 mg/dL (6-20); Carbon Dioxide 24 mmol/L (22-29); Chloride 97 mmol/L (98-107); Glomerular Filtration Rate 107.6 mL/min (90-130); Glucose 103 mg/dL (65-115); Lipase 15 U/L (13-60); Osmolality Calculated 275 mOsm/kg (285-295); Potassium 4.3 mmol/L (3.5-5.1); Sodium 132 mmol/L (136-145); Total Bilirubin 0.7 mg/dL (0.15-1.2); Total Protein 7.3 g/dL (6.6-8.7)
[2020-01-16 20:43] LABS: Bilirubin Urine 1+ (Negative); Blood Urine 2+ (Negative); Glucose Urine UA Norm (Normal); Ketones Urine 2+ (Negative); Leukocyte Esterase Urine Negative (Negative); Nitrate Urine Negative (Negative); Protein Urine Neg (Negative); Urine Appearance Clear (CLEAR); Urine Color Yellow (Yellow); Urobilinogen Urine 4 mg/dL (Negative); pH Urine 5 (5-7)
[2020-01-16 21:14] VITALS: BP 132/85; PULSE 87; RESP 16; O2SAT 98
[2020-01-16] MEDS: ibuprofen 600 mg Tablet PO (21:17)
[2020-01-16 21:37] LABS: Add Urine Culture? No; Bacteria Urine 1+ /hpf; Mucus Urine 2+ /hpf; RBC Urine 0-4 /hpf (0-2); Squamous Epithelial Cell Urine 15-25 /hpf (0-5); WBC Urine 0-4 /hpf (0-5)
[2020-01-16 22:22] LABS: Rapid Strep A Test Negative (Negative)
[2020-01-16 22:37] VITALS: BP 121/73; PULSE 87; RESP 16; O2SAT 99
[2020-01-18 19:12] LABS: Quest SARS-CoV-2 RNA NOT DETECTED (NOT DETECTED)
== END 2020-01-16 22:38 | disposition home or self-care (01) ==
PROVIDERS: Emergency Provider Physician Assistant
DX: K59.00 Constipation, unspecified (principal); Z20.828 Contact with and (suspected) exposure to other viral communicable diseases
CPT/HCPCS: 12345; 80053; 81001; 83690; 85025; 87040; 87081; 87635; 87880; 96361; 96374; 99283; J2405; J7030

== ENCOUNTER 2020-01-18 11:05 | Emergency (ER) | payer SELFPAY ==
[2020-01-18 11:16] VITALS: BP 162/101; PULSE 83; RESP 16; TEMP 36.5; O2SAT 96; BMI 31.5
[2020-01-18 11:24] VITALS: RESP 16; O2SAT 98
--- NOTE | 2020-01-18 11:32 | ED_ITS ---
HPI - Dental/Oral General: Chief complaint: Dental/Oral Stated complaint: BILATERAL JAW PAIN Time Seen by Provider: 01/18/20 11:32 Source: patient Mode of arrival: ambulatory Limitations: no limitations History of Present Illness: HPI Narrative: pain in upper and lower gums Review of Systems General: Reports: 10 or more systems reviewed and unremarkable except in HPI and below ENMT: Reports: mouth pain PFSH ED PFSH: Social History Smoking and tobacco status: never smoked Alcohol intake: never Physical Exam Const: COMMON NORMALS: no acute distress, patient oriented x3, no limitations and alert GENERAL APPEARANCE: cooperative and comfortable O RIENTATION/CONSCIOUSNESS: Yes awake, Yes oriented to person, Yes oriented to place and Yes oriented to time HENMT: COMMON NORMALS: normocephalic, atraumatic, external ears normal, EAC's normal, TM's normal bilaterally and Normal external nose present HEAD & SCALP: normal to inspection, normocephalic and atraumatic FACE & SINUS: normal facial exam, sinuses nontender and face symmetric NOSE: Normal external nose present, Normal nares present and No nasal discharge present EXTERNAL EAR: Yes external ears normal EXTERNAL AUDITORY CANAL: EAC's normal TYMPANIC MEMBRANE: TM's normal bilaterally MOUTH: Normal oral and palatal mucosa present, lip normal and tongue normal TEETH & GINGIVA: Yes abnormal tooth and associated gingiva (redness and swollen ), Yes gingiva abnormal and Yes poor dentition THROAT: posterior oropharynx normal, tonsils normal and uvula midline Eye: COMMON NORMALS: Equal, round and reactive pupils present, EOMs intact bilaterally and conjunctivae normal GENERAL EYE: appearance normal, both eyes and all related structures and normal light reflex EYELID: eyelids normal CONJUNCTIVA: Yes conjunctivae normal PUPIL: Yes Equal, round and reactive pupils present EOM: Yes EOM abnormal DIRECT OPHTHALMOSCOPY: Yes normal light reflex Neck/C-Spine: COMMON NORMALS: full ROM, no lymphadenopathy, supple, no meningeal signs, no JVD and Thyroid normal GENERAL: Yes normal visual inspection THYROID: Thyroid normal CERVICAL SPINE: Yes cervical ROM normal and Yes normal cervical lordosis Lymph: LYMPHATIC: no lymphadenopathy noted Chest: COMMONS NORMALS: normal inspection of the chest and normal palpation of entire chest wall Resp: COMMON NORMALS: normal respiratory effort, No retractions and clear to auscultation bilaterally AUSCULTATION: clear to auscultation bilaterally Cardio: COMMON NORMALS: no JVD, regular rate, regular rhythm, S1 normal heart sound present, S2 normal heart sound present, No gallops present (Cardio), No clicks present (Cardio), No murmurs present (Cardio), No rub (Cardio) and Peripheral pulses 2+ throughout RATE: regular rate RHYTHM: regular rhythm HEART SOUNDS: S1 normal heart sound present and S2 normal heart sound present PERIPHERAL PULSES: Peripheral pulses 2+ throughout GI: COMMON NORMALS: Normal to inspection, nondistended, normoactive bowel sounds present, Soft to palpation, non-tender and no masses PALPATION: Yes Soft to palpation : COMMON NORMALS: Yes no CVA tenderness BLADDER/KIDNEY EXAM: Yes no CVA tenderness Back/Pelvis: COMMON NORMALS: no CVA tenderness, thoracic and lumbar spine normal to inspection, no thoracic nor lumbar tenderness and thoraco-lumbar ROM normal Extremity: COMMON NORMALS: normal to inspection, full ROM, capillary refill normal, no joint enlargement, no clubbing, cyanosis or edema, no calf tenderness and no pedal edema GENERAL: Yes normal exam except as noted Neuro: COMMON NORMALS: patient oriented x3, moves all extremities, no focal motor deficits, no sensory deficits noted and gait normal SENSORIUM/ORIENTATION: Yes alert, Yes oriented to person, Yes oriented to place and Yes oriented to time MENINGEAL SIGNS: Yes no meningeal signs Psych: COMMON NORMALS: mental status grossly normal, Normal thought process present, cooperative, normal affect, speech normal and activity/motor behavior normal SPEECH: Yes normal speech THOUGHT PROCESS: Normal thought process present Skin: COMMON NORMALS: no rashes or lesions noted, no wounds and turgor normal GENERAL SKIN EXAM: no rashes or lesions noted and turgor normal Course ED course: Pt presents with complaints of gum pain. Poor dentation noted throughout but not specific abscess or pain assessed. Will do perioral rinse script and advise to follow up with dentist as soon as possible. Vital Signs: Vital signs: Vital Signs Temperature 97.7 F 01/18/20 11:16 Pulse Rate 83 01/18/20 11:16 Respiratory Rate 16 01/18/20 11:24 Blood Pressure 162/101 01/18/20 11:16 Pulse Oximetry 98 01/18/20 11:24 Discharge Plan Discharge Patient Disposition: Home Clinical Impression: Dental caries, Acute gingivitis Condition: Stable Prescriptions: New chlorhexidine gluconate 0.12 % mouthwash 15 ml BUCCAL BID Qty: 118 RF: 0 No Action ondansetron HCl [Zofran] 4 mg tablet 4 mg PO Q8H Qty: 30 RF: 0 polyethylene glycol 3350 [Miralax] 17 gram/dose powder 17 gm PO DAILY PRN (Reason: constipation) Qty: 119 RF: 0 Tylenol Extra Strength 500 mg Tablet 500 - 1,000 mg PO PRN RF: 0 ibuprofen 2 tab PO PRN RF: 0 Discharge Orders: Discharge Order (Routine); Ordered 01/18/20 Ordered By: Celeste Hargrove Discharge Diet: Usual diet Discharge Activity: Resume usual activity Activity Restrictions/Additional Instructions: Follow up with dentist without fail. 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
--- NOTE | 2020-01-18 12:10 | PC.NURSE ---
report received from heather herrera assumed care.
--- NOTE | 2020-01-19 09:38 | PC.NURSE ---
left message on pts voicemail for him to return call
--- NOTE | 2020-01-19 12:14 | PC.NURSE ---
pt called back and given the results of his covid test
== END 2020-01-18 12:38 | disposition home or self-care (01) ==
PROVIDERS: Emergency Provider Nurse Practitioner Family
DX: K02.9 Dental caries, unspecified (principal); K05.00 Acute gingivitis, plaque induced
CPT/HCPCS: 12345; 99282

== ENCOUNTER 2021-09-23 23:40 | Emergency (ER) | payer SELFPAY ==
[2021-09-23 23:46] VITALS: BMI 35.9
[2021-09-23 23:48] VITALS: BP 155/84; PULSE 64; RESP 16; TEMP 36.7; O2SAT 97
[2021-09-23 23:49] VITALS: BP 155/84; PULSE 63; RESP 16; O2SAT 97
--- NOTE | 2021-09-24 00:43 | ED_ITS ---
HPI - Ear Problem General: Chief complaint: Ear Stated complaint: possible bug in L ear Time Seen by Provider: 09/24/21 00:42 History of Present Illness: 21-year-old male patient comes in with a bug in his left ear canal. Patient reports he was playing with his dog and felt something go into his left ear. Since then he feels like there is something crawling in his ear still. Patient appears nontoxic. Patient appears in mild discomfort. Associated symptoms: Reports ear or mastoid pain Review of Systems General: Reports: 10 or more systems reviewed and unremarkable except in HPI and below ENMT: Reports: ear or mastoid pain Card: Denies: chest pain Resp: Denies: dyspnea Skin/Breast: Denies: rash PFS ED PFSH: Medical History (Updated 09/24/21 @ 01:10 by TJ Melchor) Psychiatric care Social History Smoking and tobacco status: never smoked Alcohol intake: never Physical Exam Const: COMMON NORMALS: patient oriented x3 HENMT: COMMON NORMALS: TM's normal bilaterally EXTERNAL AUDITORY CANAL: Abnormal EAC present EAC laterality: left (No insect visualized) Details: excessive cerumen TYMPANIC MEMBRANE: TM's normal bilaterally Neck/C-Spine: COMMON NORMALS: full ROM Resp: COMMON NORMALS: normal respiratory effort Cardio: COMMON NORMALS: regular rate RATE: regular rate Extremity: COMMON NORMALS: normal to inspection Neuro: COMMON NORMALS: patient oriented x3 Skin: COMMON NORMALS: no rashes or lesions noted GENERAL SKIN EXAM: no rashes or lesions noted Course Vital Signs: Vital signs: Vital Signs Temperature 98.1 F 09/23/21 23:48 Pulse Rate 63 09/23/21 23:49 Respiratory Rate 16 09/23/21 23:49 Blood Pressure 155/84 09/23/21 23:49 Pulse Oximetry 97 09/23/21 23:49 [facility] - Ear Medical Decision Making Patient comes in for possible insect in the left ear canal. On exam there was noticeable cerumen in the ear canal but no insect was visualized. Nursing irrigated the ear and ear canal was cleared of all cerumen. No insect was noted in the canal after irrigation. Differential diagnosis includes cerumen impaction, foreign body ear, insect in the ear. Ear was cleared of cerumen and possible insect. Although no insect was seen suspect it was either flushed from the ear or had removed itself prior to arrival to the ER. Patient did have relief of discomfort. Recommended follow-up with primary care for further instruction. Return to ER for new concerns. Discharge Plan Discharge Patient Disposition: Home Clinical Impression: Foreign body in ear Qualifiers: Encounter type: initial encounter Laterality: left Qualified Code(s): T16.2XXA - Foreign body in left ear, initial encounter Condition: Stable Prescriptions: No Action ondansetron HCl [Zofran] 4 mg tablet 4 mg PO Q8H Qty: 30 0RF Rx Instructions: pt states he never filled this medication polyethylene glycol 3350 [Miralax] 17 gram/dose powder 17 gm PO DAILY PRN (Reason: constipation) Qty: 119 0RF Rx Instructions: pt states he never filled this medication Tylenol Extra Strength 500 mg Tablet 500 - 1,000 mg PO PRN 0RF ibuprofen 2 tab PO PRN 0RF Rx Instructions: pt states the ibuprofen he takes is 500mg per tab chlorhexidine gluconate 0.12 % mouthwash 15 ml BUCCAL BID Qty: 118 0RF Discharge Orders: Discharge ED (Routine); Ordered 09/24/21 Ordered By: Theodore Mendoza Discharge Diet: Usual diet Discharge Activity: Increase activity as tolerated Patient Instructions: Foreign Body - Ear Activity Restrictions/Additional Instructions: Activity as tolerated. Follow-up with primary care as needed. Return to ER for new concerns. 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
== END 2021-09-24 01:27 | disposition home or self-care (01) ==
PROVIDERS: Emergency Provider Nurse Practitioner Family
DX: H61.22 Impacted cerumen, left ear (principal)
CPT/HCPCS: 99282

== ENCOUNTER 2021-11-29 20:52 | Emergency (ER) | payer MEDICAID, SELFPAY ==
[2021-11-29 20:59] VITALS: BP 145/82; PULSE 95; RESP 16; TEMP 36.8; O2SAT 100
--- NOTE | 2021-11-29 21:13 | W.ED.EYEPROB ---
HPI - Eye Problem General: Chief complaint: Eye Problems Stated complaint: Left eye swollen/pain Time Seen by Provider: 11/29/21 21:13 History of Present Illness: 21-year-old gentleman without significant ocular history presenting to the emergency department due to left eye complaint. He reports symptom onset approximately 2 days ago without known specific provoking factor. He noticed mild irritation and swelling of the lower lower eyelid which he tried to treat with topical antibiotic however symptoms have worsened. Denies signs systemic illness. No pain with EOMs, no changes in vision. No frequent history of similar. No other specific changes in health, exacerbating, or alleviating factors identified. Onset (ago): day(s) Duration: constant Mechanism: none Associated symptoms: Reports no associated symptoms Review of Systems General: Reports: 10 or more systems reviewed and unremarkable except in HPI and below PFSH ED PFSH: Medical History (Updated 12/15/21 @ 15:23 by Marlo Herrera MD) No significant past medical history Surgical History (Updated 12/15/21 @ 15:23 by Marlo Herrera MD) No significant past surgical history Social History Smoking and tobacco status: never smoked Alcohol intake: never Physical Exam Const: COMMON NORMALS: alert GENERAL APPEARANCE: cooperative and well developed HENMT: COMMON NORMALS: normocephalic and atraumatic HEAD & SCALP: normocephalic and atraumatic Eye: COMMON NORMALS: Equal, round and reactive pupils present, EOMs intact bilaterally and normal visual bliss by confrontation SCLERA: sclerae normal PUPIL: Yes Equal, round and reactive pupils present OTHER: Visual acuity is normal. Slit-lamp exam performed. Neck/C-Spine: COMMON NORMALS: supple GENERAL: Yes trachea midline Resp: COMMON NORMALS: normal respiratory effort EFFORT & INSPECTION: Yes able to speak in complete sentences Cardio: COMMON NORMALS: regular rate and regular rhythm RATE: regular rate RHYTHM: regular rhythm GI: COMMON NORMALS: Soft to palpation PALPATION: Yes Soft to palpation and No Tenderness to palpation present (GI) PERCUSSION: normal to percussion Extremity: GENERAL: Yes normal exam except as noted and No edema Neuro: COMMON NORMALS: moves all extremities SENSORIUM/ORIENTATION: Yes alert and No Orientation impaired Psych: COMMON NORMALS: mental status grossly normal and Normal thought process present THOUGHT PROCESS: Normal thought process present Course Vital Signs: Vital signs: Vital Signs Temperature 98.2 F 11/29/21 20:59 Pulse Rate 95 11/29/21 20:59 Respiratory Rate 16 11/29/21 20:59 Blood Pressure 145/82 11/29/21 20:59 Pulse Oximetry 100 11/29/21 20:59 Oxygen Delivery Me thod 11/29/21 20:59 MDM - Eye Problem Medical Decision Making 21-year-old male presenting with eye concern. Mechanism is nontraumatic. No high risk findings on physical exam. Visual acuity is preserved. EOMs intact without pain. Likely mild cellulitis associated with stye. Satisfactory for outpatient management with strict return precautions/follow-up plan given. Medical Records I reviewed the patient's medical records. Lab Data I reviewed the patient's lab results. Discharge Plan Discharge Patient Disposition: Home Clinical Impression: Preseptal cellulitis of left eye Condition: Stable Prescriptions: New amoxicillin-pot clavulanate 875-125 mg tablet 1 tab PO BID Qty: 14 0RF No Action ondansetron HCl [Zofran] 4 mg tablet 4 mg PO Q8H Qty: 30 0RF Rx Instructions: pt states he never filled this medication polyethylene glycol 3350 [Miralax] 17 gram/dose powder 17 gm PO DAILY PRN (Reason: constipation) Qty: 119 0RF Rx Instructions: pt states he never filled this medication Tylenol Extra Strength 500 mg Tablet 500 - 1,000 mg PO PRN ibuprofen 2 tab PO PRN Rx Instructions: pt states the ibuprofen he takes is 500mg per tab chlorhexidine gluconate 0.12 % mouthwash 15 ml BUCCAL BID Qty: 118 0RF Discharge Orders: Discharge ED (Routine); Ordered 11/29/21 Ordered By: Marlo Herrera Discharge Diet: Usual diet Discharge Activity: Increase activity as tolerated Patient Instructions: Stye (ED), Periorbital Cellulitis (ED) Activity Restrictions/Additional Instructions: Thank you for visiting the emergency department. You were seen and evaluated for eye complaint. The exact cause of your symptoms is unclear though likely related to superficial bacterial infection. This will be treated with antibiotics Please follow-up with your primary care provider. I would expect improvement in the next few days, you should also use warm compresses for 15 minutes 4 times per day. Please keep the area clean and dry. Please return to the emergency department for any vision changes, worsening pain, pain with movement of the eye, fevers, significant spread of redness, or anything else that you are concerned about a feel needs emergency department evaluation. If symptoms persist beyond 1 week I recommend follow-up with ophthalmology. 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
--- NOTE | 2021-11-29 22:02 | PC.NURSE ---
Had patient read the 20/25 and 20/20 lines, there was a little difficulty making out the letters but the patient did do well, he did state that he did have some blurriness with the affected eye.
[2021-11-29] MEDS: amoxicillin-clav 875-125 mg Tablet 1 TAB PO (22:32)
[2021-11-29] MEDS: tetracaine 0.5% Op Soln 4 mL Btl 1 DROP EYE-LEFT (22:32)
[2021-11-29] MEDS: fluorescein 1 mg Strip EYE-RIGHT (22:32)
== END 2021-11-29 22:48 | disposition home or self-care (01) ==
PROVIDERS: Emergency Provider Emergency Medicine
DX: L03.213 Periorbital cellulitis (principal)
CPT/HCPCS: 99283

== ENCOUNTER 2023-01-11 14:44 | Emergency (ER) | payer MEDICAID, SELFPAY ==
[2023-01-11 14:48] VITALS: BP 154/65; PULSE 138; RESP 17; TEMP 37.7; O2SAT 98; BMI 27.8
--- NOTE | 2023-01-11 14:58 | ECG_ITS ---
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 Measurements Intervals [place] Rate: 125 P: 40 AR: 143 QRS: 43 QRSD: 69 T: 42 QT: 282 QTc: 407 Interpretive Statements SINUS TACHYCARDIA SEPTAL MYOCARDIAL INFARCTION , OF INDETERMINATE AGE [40+ ms Q WAVE IN V1/V2] No previous ECG available for comparison Electronically Signed On 01-11-2023 20:30:04 CDT by Onofre Pat M.D. [email or web address] [email or web address] [email or web address]/store/NU/[id number]
--- NOTE | 2023-01-11 14:59 | ECG_ITS ---
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 Measurements Intervals [place] Rate: 114 P: 43 ND: 140 QRS: 39 QRSD: 74 T: 31 QT: 289 QTc: 398 Interpretive Statements SINUS TACHYCARDIA SEPTAL MYOCARDIAL INFARCTION , OF INDETERMINATE AGE [40+ ms Q WAVE IN V1/V2] No previous ECG available for comparison Electronically Signed On 01-11-2023 20:29:55 CDT by Onofre Pat M.D. [email or web address] [email or web address]-[email or web address] memorial hospitalAnobit [email or web address]/store/OM/[id number]
--- NOTE | 2023-01-11 15:03 | ED_ITS ---
HPI - Nausea/Vomiting/Diarrhea General: Chief complaint: Nausea/Vomiting/Diarrhea Stated complaint: throwing up Time Seen by Provider: 01/11/23 14:54 History of Present Illness: Patient presents to the ER with complaints of vomiting since yesterday. He has not been able to eat or drink anything and keep it down. Patient upon arrival his heart rate was up in the 130s to 150s. Temperature 99.9. Patient does not have any abdominal pain chest pain etc. Patient says he does not usually get sick very often and has had and has no known sick contacts currently. Review of Systems General: Reports: 10 or more systems reviewed and unremarkable except in HPI and below PFSH ED PFSH: Medical History No significant past medical history Psychiatric care Surgical History No significant past surgical history Social History Smoking and tobacco status: never smoked Alcohol intake: never Substance/Drug Use: former Physical Exam Const: COMMON NORMALS: no acute distress, average body habitus, patient oriented x3, no limitations, healthy appearing, alert and well nourished HENMT: COMMON NORMALS: normocephalic, atraumatic, hearing grossly normal bilaterally, external ears normal, Normal external nose present and moist oral mucous membranes HEAD & SCALP: normocephalic and atraumatic NOSE: Normal external nose present EXTERNAL EAR: Yes external ears normal Neck/C-Spine: COMMON NORMALS: no JVD Chest: COMMONS NORMALS: normal inspection of the chest and normal palpation of entire chest wall Resp: COMMON NORMALS: normal respiratory effort, No retractions, No use of accessory muscles and clear to auscultation bilaterally AUSCULTATION: clear to auscultation bilaterally Cardio: COMMON NORMALS: no JVD, regular rhythm, S1 normal heart sound present, S2 normal heart sound present, No gallops present (Cardio), No clicks present (Cardio), No murmurs present (Cardio) and No rub (Cardio); negative for regular rate (Tachycardic) RATE: abnormal rate (Tachycardic) RHYTHM: regular rhythm HEART SOUNDS: S1 normal heart sound present and S2 normal heart sound present GI: COMMON NORMALS: Normal to inspection, nondistended, normoactive bowel sounds present, Soft to palpation, non-tender, No hepatosplenomegaly present and no masses PALPATION: Yes Soft to palpation and Yes No hepatosplenomegaly present : COMMON NORMALS: Yes no CVA tenderness BLADDER/KIDNEY EXAM: Yes no CVA tenderness Back/Pelvis: COMMON NORMALS: no CVA tenderness Neuro: COMMON NORMALS: patient oriented x3 SENSORIUM/ORIENTATION: Yes alert Course Vital Signs: Vital signs: Vital Signs Temperature 99.9 F H 01/11/23 14:48 Pulse Rate 103 H 01/11/23 16:46 Respiratory Rate 20 H 01/11/23 16:46 Blood Pressure 125/81 01/11/23 16:44 Pulse Oximetry 94 01/11/23 16:44 Oxygen Delivery Me thod Room Air 01/11/23 16:44 MDM - Nausea/Vomiting/Diarrhea Medical Decision Making Patient presents to the ER with complaints of nausea, being. Patient arrived and he was tachycardic with a pulse of 138 beats a minute, lab work was obtained which revealed a white count of 17.5 this is thought to be secondary to vomiting. Rest of his blood work was benign. Patient was given 2 L of normal saline and 4 mg Zofran and did very well through his rest of his ER stay. Patient be discharged home with Zofran and he should follow-up with his PCP in the next 7 days. Differential Diagnosis Likely gastroenteritis and dehydration; Unlikely traveler's diarrhea, food poisoning, clostridium difficile infection or drug-induced nausea and vomiting Medical Records I reviewed the patient's medical records. Lab Data I reviewed the patient's lab results. 01/11/23 15:25 01/11/23 15:25 Laboratory Results WBC 17.55 10^3/uL (3.29-11.43) H 01/11/23 15:25 RBC 5.35 10^6/uL (3.85-5.65) 01/11/23 15:25 Hgb 15.90 g/dL (11.27-16.99) 01/11/23 15:25 Hct 46.1 % (37-53) 01/11/23 15:25 MCV 86.2 fl (82-101) 01/11/23 15:25 MCH 29.7 pg (27-33) 01/11/23 15:25 MCHC 34.5 g/dL (30-55) 01/11/23 15:25 RDW 12.7 % (12.1-15.1) 01/11/23 15:25 Plt Count 264 10^3/cmm (157-399) 01/11/23 15:25 MPV 9.5 fL (7.4-10.4) 01/11/23 15:25 Neut % (Auto) 77.4 % 01/11/23 15:25 Lymph % (Auto) 10.8 % 01/11/23 15:25 Lucas % (Auto) 11.2 % 01/11/23 15:25 Eos % (Auto) 0.0 % 01/11/23 15:25 Baso % (Auto) 0.3 % 01/11/23 15:25 Neut # (Auto) 13.59 10^3/uL (1.8-7.7) H 01/11/23 15:25 Lymph # (Auto) 1.9 10^3/uL (0.8-4.8) 01/11/23 15:25 Lucas # (Auto) 2.0 10^3/uL (0.2-0.9) H 01/11/23 15:25 Eos # (Auto) 0.0 10^3/uL (0.0-0.8) 01/11/23 15:25 Baso # (Auto) 0.1 10^3/uL (0.0-0.1) 01/11/23 15:25 Nucleated RBC % (auto) 0 % 01/11/23 15:25 Nucleated RBCs # 0.0 /100WBC 01/11/23 15:25 Sodium 135 mmol/L (136-145) L 01/11/23 15:25 Potassium 3.9 mmol/L (3.5-5.1) 01/11/23 15:25 Chloride 100 mmol/L (98-107) 01/11/23 15:25 Carbon Dioxide 21 mmol/L (22-29) L 01/11/23 15:25 Anion Gap 17.9 (5-19) 01/11/23 15:25 BUN 17 mg/dL (6-20) 01/11/23 15:25 Creatinine 1.0 mg/dL (0.7-1.2) 01/11/23 15:25 GFR Calculation 92.6 mL/min (90-130) 01/11/23 15:25 Glucose 112 mg/dL (65-115) 01/11/23 15:25 Calculated Osmolality 282 mOsm/kg (285-295) L 01/11/23 15:25 Calcium 9.1 mg/dL (8.5-10.5) 01/11/23 15:25 Magnesium 1.6 mg/dL (1.7-2.3) L 01/11/23 15:25 Total Bilirubin 1.0 mg/dL (0.15-1.2) 01/11/23 15:25 AST 19 U/L (0-40) 01/11/23 15:25 ALT 33 U/L (0-41) 01/11/23 15:25 Alkaline Phosphatase 76 U/L (40-130) 01/11/23 15:25 Total Protein 7.2 g/dL (6.6-8.7) 01/11/23 15:25 Albumin 4.3 g/dL (3.5-5.2) 01/11/23 15:25 Globulin 2.9 g/dL (1.3-4.6) 01/11/23 15:25 All radiology interpretation(s) finalized by discharge EKG Data EKG 1: I personally reviewed and interpreted this EKG as follows: EKG interpretation date: 01/11/23 EKG interpretation time: 14:52 Prior EKG tracings: not available for review Interpretation: EKG showed ventricular rate 125 bpm, RI interval 143, QRS duration 69, QTc 356, sinus tachycardia Discharge Plan Discharge Patient Disposition: Home Clinical Impression: Dehydration Nausea & vomiting Qualifiers: Vomiting type: unspecified Qualified Code(s): R11.2 - Nausea with vomiting, unspecified Condition: Stable Prescriptions: New ondansetron HCl 4 mg tablet 4 mg PO Q8H PRN (Reason: nausea and vomiting) Qty: 14 0RF No Action fluoxetine 40 mg capsule 40 mg PO DAILY Qty: 30 2RF trazodone 50 mg tablet 100 mg PO .HS PRN (Reason: insomnia) Qty: 60 2RF Excedrin Extra Strength 250-250-65 mg tablet 1 tab PO Q6H PRN Tylenol Extra Strength 500 mg Tablet 500 - 1,000 mg PO PRN Discharge Orders: Discharge ED (Routine); Ordered 01/11/23 Ordered By: Raffy Brewer Referrals: Nakul Cope MD [Primary Care Provider] - 1 week Patient Instructions: Dehydration - Adult, Acute Nausea and Vomiting (DC) Activity Restrictions/Additional Instructions: Please push plenty of clear fluids. Please advance her diet as tolerated please follow-up with your primary care doctor within the next 7 days or sooner as needed for further evaluation and treatment. Coding Level of Care Code ED Client Relations Associate for Fely Borden
[2023-01-11 15:34] LABS: Basophils # 0.1 10^3/uL (0.0-0.1); Basophils % 0.3 %; Hematocrit 46.1 % (37-53); Lymphocytes # 1.9 10^3/uL (0.8-4.8); Lymphocytes % 10.8 %; Mean Corpuscular HGB Conc 34.5 g/dL (30-55); Mean Corpuscular Hemoglobin 29.7 pg (27-33); Mean Corpuscular Volume 86.2 fl (82-101); Mean Platelet Volume 9.5 fL (7.4-10.4); Monocytes % 11.2 %; Neutrophils # 13.59 10^3/uL (1.8-7.7); Neutrophils % 77.4 %; Nucleated Red Blood Cells % 0 %; Platelet Count 264 10^3/cmm (157-399); Red Blood Count 5.35 10^6/uL (3.85-5.65); Red Cell Distribution Width 12.7 % (12.1-15.1); White Blood Count 17.55 10^3/uL (3.29-11.43)
[2023-01-11 15:58] LABS: Alanine Aminotransferase 33 U/L (0-41); Albumin Level 4.3 g/dL (3.5-5.2); Alkaline Phosphatase 76 U/L (40-130); Anion Gap 17.9 (5-19); Aspartate Amino Transferase 19 U/L (0-40); Blood Urea Nitrogen 17 mg/dL (6-20); Calcium 9.1 mg/dL (8.5-10.5); Carbon Dioxide 21 mmol/L (22-29); Chloride 100 mmol/L (98-107); Globulin 2.9 g/dL (1.3-4.6); Glomerular Filtration Rate 92.6 mL/min (90-130); Glucose 112 mg/dL (65-115); Magnesium 1.6 mg/dL (1.7-2.3); Osmolality Calculated 282 mOsm/kg (285-295); Potassium 3.9 mmol/L (3.5-5.1); Sodium 135 mmol/L (136-145); Total Protein 7.2 g/dL (6.6-8.7)
[2023-01-11] MEDS: ondansetron 2 mg/ML SDV 2 mL 4 MG IVP (16:37)
[2023-01-11] MEDS: sodium chloride 0.9% 1,000 ML 999 ML IV (16:38)
[2023-01-11 16:44] VITALS: BP 125/81; PULSE 105; RESP 27; O2SAT 94
[2023-01-11 16:46] VITALS: PULSE 103; RESP 20
[2023-01-11 19:30] VITALS: BP 137/85; PULSE 92; RESP 20; O2SAT 99
[2023-01-11 20:30] VITALS: BP 142/93; PULSE 98; RESP 21; O2SAT 99
[2023-01-11] MEDS: acetaminophen 500 mg Tablet 1000 MG PO (20:50)
[2023-01-11 20:57] VITALS: BP 142/93; PULSE 91; RESP 18; O2SAT 98
== END 2023-01-11 21:00 | disposition home or self-care (01) ==
PROVIDERS: Emergency Provider Emergency Medicine; PCP Family Medicine
DX: R11.2 Nausea with vomiting, unspecified (principal); E86.0 Dehydration
CPT/HCPCS: 80053; 83735; 85025; 93005; 96374; 99284; J2405; J7030

== ENCOUNTER 2024-01-18 00:48 | Emergency (ER) | payer MEDICAID, SELFPAY ==
[2024-01-18] VITALS (9 sets, daily range): BP systolic 119–158; BP diastolic 56–88; PULSE 75–116; RESP 16; TEMP 38.3–38.6; O2SAT 92–97; BMI 34.2
[2024-01-18] MEDS: sodium chloride 0.9% 1,000 ML 999 ML IV ×2 (02:15→03:27)
[2024-01-18] MEDS: ondansetron 2 mg/ML SDV 2 mL 4 MG IVP (02:26)
[2024-01-18] MEDS: ketorolac 30 mg/mL INJ IVP (02:26)
[2024-01-18 02:42] LABS: Basophils % 0.3 %; Bilirubin Urine Negative (Negative); Blood Urine Negative (Negative); Eosinophils % 0.1 %; Glucose Urine UA Negative (Normal); Hematocrit 50.4 % (37-53); Ketones Urine Negative (Negative); Leukocyte Esterase Urine Negative (Negative); Lymphocytes # 1.6 10^3/uL (0.8-4.8); Lymphocytes % 18.9 %; Mean Corpuscular HGB Conc 34.1 g/dL (30-55); Mean Corpuscular Hemoglobin 29.8 pg (27-33); Mean Corpuscular Volume 87.3 fl (82-101); Mean Platelet Volume 10.1 fL (7.4-10.4); Monocytes # 0.8 10^3/uL (0.2-0.9); Monocytes % 9.4 %; Neutrophils # 6.11 10^3/uL (1.8-7.7); Nitrate Urine Negative (Negative); Nucleated Red Blood Cells % 0 %; Platelet Count 273 10^3/cmm (157-399); Protein Urine Negative (Negative); Red Blood Count 5.77 10^6/uL (3.85-5.65); Red Cell Distribution Width 11.9 % (12.1-15.1); Specific Gravity, Urine 1.019 (1.005-1.030); Urine Appearance Clear (CLEAR); Urine Color Yellow (Yellow); White Blood Count 8.62 10^3/uL (3.29-11.43)
[2024-01-18 02:47] LABS: Add Urine Microscopic? YES; Bacteria Urine None Seen /hpf; Hyaline Casts Urine 0-4 /lpf; Squamous Epithelial Cell Urine 0-5 /hpf (0-5); WBC Urine 0-5 /hpf (0-5)
[2024-01-18 02:50] LABS: Amphetamines Screen Urine Negative (Negative); Barbiturates Screen Urine Negative (Negative); Benzodiazepines Screen Urine Negative (Negative); Cocaine Screen Urine Negative (Negative); Opiate Screen Urine Negative (Negative); PCP Screen Urine Negative (Negative); THC Screen Urine Negative (Negative)
[2024-01-18 03:03] LABS: Alanine Aminotransferase 35 U/L (0-41); Albumin Level 4.6 g/dL (3.5-5.2); Alkaline Phosphatase 80 U/L (40-130); Anion Gap 14.8 (5-19); Aspartate Amino Transferase 21 U/L (0-40); Blood Urea Nitrogen 13 mg/dL (6-20); C Reactive Protein 11.6 mg/L (0.0-4.9); Calcium 9.5 mg/dL (8.5-10.5); Carbon Dioxide 26 mmol/L (22-29); Chloride 98 mmol/L (98-107); Creatinine Clr Calc Pharmacy 144.4071; Globulin 3.5 g/dL (1.3-4.6); Glomerular Filtration Rate 91.8 mL/min (90-130); Glucose 106 mg/dL (65-115); Lipase 18 U/L (13-60); Osmolality Calculated 281 mOsm/kg (285-295); Potassium 3.8 mmol/L (3.5-5.1); Sodium 135 mmol/L (136-145); Total Bilirubin 0.6 mg/dL (0.15-1.2); Total Protein 8.1 g/dL (6.6-8.7)
[2024-01-18 03:24] LABS: Covid PCR NEGATIVE (Negative); Influenza A NEGATIVE (Negative); Influenza B NEGATIVE (Negative); Respiratory Syncytial Virus Ce NEGATIVE (Negative)
--- NOTE | 2024-01-18 04:44 | W.ED.DIZZY ---
HPI - Dizziness General: Chief Complaint: Dizziness Stated Complaint: Dizzy\Fever\Weak Time Seen by Provider: 01/18/24 02:14 History of Present Illness: HPI Narrative: 23-year-old male complains of vomiting and dizziness. Has had a fever this evening. No diarrhea. No blood in the stool or vomitus. He does not have belly pain. No cough or respiratory symptoms. He is concerned that he may have had bad [employer] pizza, last evening. Related Data Home Medications Medication Instructions Recorded Confirmed acetaminophen 500 mg tablet 500 - 1,000 mg PO PRN 01/18/20 04/17/23 (Tylenol Extra Strength) yointvv-lajxsfekesylb-ndflzaim 250 1 tab PO Q6H PRN 06/03/22 04/17/23 mg-250 mg-65 mg tablet (Excedrin Extra Strength) Previous Rx's Medication Instructions Recorded fluoxetine 20 mg capsule (Prozac) 20 mg PO DAILY #30 caps 04/17/23 fluoxetine 40 mg capsule 40 mg PO DAILY #30 caps 04/17/23 trazodone 50 mg tablet 100 mg (2 x 50 mg) PO .HS PRN 04/17/23 insomnia #60 tabs ondansetron HCl 4 mg tablet 4 mg PO Q8H PRN nausea and 01/18/24 vomiting #14 tabs Allergies Allergy/AdvReac Type Severity Reaction Status Date / Time No Known Allergies Allergy Verified 04/17/23 15:09 [facility] ED PFSH: Medical History No significant past medical history Psychiatric care Surgical History No significant past surgical history Social History Smoking and tobacco/nicotine status: never used tobacco/nicotine Alcohol intake: never Substance/Drug Use: former Physical Exam Const: COMMON NORMALS: no acute distress GENERAL APPEARANCE: cooperative; not ill appearing and not frail appearing HENMT: COMMON NORMALS: normocephalic, atraumatic and Normal external nose present HEAD & SCALP: normocephalic and atraumatic FACE & SINUS: normal facial exam and face symmetric NOSE: Normal external nose present Eye: COMMON NORMALS: Equal, round and reactive pupils present and EOMs intact bilaterally PUPIL: Yes Equal, round and reactive pupils present Neck/C-Spine: GENERAL: Yes trachea midline Chest: CHEST: Yes Symmetrical chest wall rise Resp: COMMON NORMALS: normal respiratory effort, No retractions, No use of accessory muscles and clear to auscultation bilaterally AUSCULTATION: clear to auscultation bilaterally Cardio: COMMON NORMALS: regular rate and regular rhythm RATE: regular rate RHYTHM: regular rhythm GI: COMMON NORMALS: Normal to inspection, nondistended, normoactive bowel sounds present and Soft to palpation PALPATION: Yes Soft to palpation and No Tenderness to palpation present (GI) Extremity: COMMON NORMALS: no pedal edema Neuro: ASIA COMA SCALE: document GCS findings Crane coma scale eye opening: Spontaneous Crane coma scale verbal response: Orientated Crane coma scale motor response: Obey commands [place] coma scale total score: 15 SENSORY EXAM: Yes extremities (intact) Psych: COMMON NORMALS: speech normal SPEECH: Yes normal speech Skin: COMMON NORMALS: no rashes or lesions noted GENERAL SKIN EXAM: no rashes or lesions noted Course Vital Signs: Vital signs: Vital Signs Temperature 101.5 F H 01/18/24 01:33 Pulse Rate 75 01/18/24 04:47 Respiratory Rate 16 01/18/24 00:58 Blood Pressure 140/68 01/18/24 04:47 Pulse Oximetry 97 01/18/24 04:47 Oxygen Delivery Me thod Room Air 01/18/24 03:49 MDM - Dizziness Medical Decision Making The patient feels significantly improved after antiemetic medication, control of his temperature, and fluid infusion. His white blood cell count is 8.6, CRP is 11. His belly is nontender. No elevation in liver enzymes. Urinalysis is negative. PCR for RSV influenza coronavirus is negative. Urine drug screen is negative. With improvement in his symptoms, he will be allowed home. He knows to return for abdominal pain, worsening vomiting, etc. Lab Data 01/18/24 02:35 01/18/24 02:35 Laboratory Results WBC 8.62 10^3/uL (3.29-11.43) 01/18/24 02:35 RBC 5.77 10^6/uL (3.85-5.65) H 01/18/24 02:35 Hgb 17.20 g/dL (11.27-16.99) H 01/18/24 02:35 Hct 50.4 % (37-53) 01/18/24 02:35 MCV 87.3 fl (82-101) 01/18/24 02:35 MCH 29.8 pg (27-33) 01/18/24 02:35 MCHC 34.1 g/dL (30-55) 01/18/24 02:35 RDW 11.9 % (12.1-15.1) L 01/18/24 02:35 Plt Count 273 10^3/cmm (157-399) 01/18/24 02:35 MPV 10.1 fL (7.4-10.4) 01/18/24 02:35 Neut % (Auto) 71.0 % 01/18/24 02:35 Lymph % (Auto) 18.9 % 01/18/24 02:35 [place] % (Auto) 9.4 % 01/18/24 02:35 Eos % (Auto) 0.1 % 01/18/24 02:35 Baso % (Auto) 0.3 % 01/18/24 02:35 Neut # (Auto) 6.11 10^3/uL (1.8-7.7) 01/18/24 02:35 Lymph # (Auto) 1.6 10^3/uL (0.8-4.8) 01/18/24 02:35 [place] # (Auto) 0.8 10^3/uL (0.2-0.9) 01/18/24 02:35 Eos # (Auto) 0.0 10^3/uL (0.0-0.8) 01/18/24 02:35 Baso # (Auto) 0.0 10^3/uL (0.0-0.1) 01/18/24 02:35 Nucleated RBC % (auto) 0 % 01/18/24 02:35 Nucleated RBCs # 0.0 /100WBC 01/18/24 02:35 Sodium 135 mmol/L (136-145) L 01/18/24 02:35 Potassium 3.8 mmol/L (3.5-5.1) 01/18/24 02:35 Chloride 98 mmol/L (98-107) 01/18/24 02:35 Carbon Dioxide 26 mmol/L (22-29) 01/18/24 02:35 Anion Gap 14.8 (5-19) 01/18/24 02:35 BUN 13 mg/dL (6-20) 01/18/24 02:35 Creatinine 1.0 mg/dL (0.7-1.2) 01/18/24 02:35 GFR Calculation 91.8 mL/min (90-130) 01/18/24 02:35 Glucose 106 mg/dL (65-115) 01/18/24 02:35 Calculated Osmolality 281 mOsm/kg (285-295) L 01/18/24 02:35 Calcium 9.5 mg/dL (8.5-10.5) 01/18/24 02:35 Total Bilirubin 0.6 mg/dL (0.15-1.2) 01/18/24 02:35 AST 21 U/L (0-40) 01/18/24 02:35 ALT 35 U/L (0-41) 01/18/24 02:35 Alkaline Phosphatase 80 U/L (40-130) 01/18/24 02:35 C-Reactive Protein 11.6 mg/L (0.0-4.9) H 01/18/24 02:35 Total Protein 8.1 g/dL (6.6-8.7) 01/18/24 02:35 Albumin 4.6 g/dL (3.5-5.2) 01/18/24 02:35 Globulin 3.5 g/dL (1.3-4.6) 01/18/24 02:35 Lipase 18 U/L (13-60) 01/18/24 02:35 Urine Color Yellow (Yellow) 01/18/24 02:35 Urine Appearance Clear (CLEAR) 01/18/24 02:35 Urine pH 8.0 (5-7) A 01/18/24 02:35 Ur Specific [place] 1.019 (1.005-1.030) 01/18/24 02:35 Urine Protein Negative (Negative) 01/18/24 02:35 Urine Glucose (UA) Negative (Normal) 01/18/24 02:35 Urine Ketones Negative (Negative) 01/18/24 02:35 Urine Blood Negative (Negative) 01/18/24 02:35 Urine Nitrate Negative (Negative) 01/18/24 02:35 Urine Bilirubin Negative (Negative) 01/18/24 02:35 Urine Urobilinogen 1.0 mg/dL (Negative) 01/18/24 02:35 Ur Leukocyte Esterase Negative (Negative) 01/18/24 02:35 Urine RBC 3-5 /hpf (0-2) 01/18/24 02:35 Urine WBC 0-5 /hpf (0-5) 01/18/24 02:35 Ur Squamous Epith Cells 0-5 /hpf (0-5) 01/18/24 02:35 Amorphous Sediment Not Reportable 01/18/24 02:35 Urine Bacteria None seen /hpf (NONE) 01/18/24 02:35 Hyaline Casts 0-4 /lpf H 01/18/24 02:35 Urine Opiates Screen Negative ng/mL (Negative) 01/18/24 02:35 Ur Barbiturates Screen Negative ng/mL (Negative) 01/18/24 02:35 Ur Phencyclidine Scrn Negative ng/mL (Negative) 01/18/24 02:35 Ur Amphetamines Screen Negative ng/mL (Negative) 01/18/24 02:35 U Benzodiazepines Scrn Negative ng/mL (Negative) 01/18/24 02:35 Urine Cocaine Screen Negative ng/mL (Negative) 01/18/24 02:35 U Marijuana (THC) Screen Negative ng/mL (Negative) 01/18/24 02:35 Coronavirus (PCR) Negative (Negative) 01/18/24 02:35 Influenza A (PCR) Negative (Negative) 01/18/24 02:35 Influenza Type B (PCR) Negative (Negative) 01/18/24 02:35 RSV (PCR) Negative (Negative) 01/18/24 02:35 No radiology studies performed this visit Discharge Plan Discharge Patient Disposition: Home Clinical Impression: Vomiting in adult Condition: Stable Prescriptions: Continued ondansetron HCl 4 mg tablet 4 mg PO Q8H PRN (Reason: nausea and vomiting) Qty: 14 0RF No Action fluoxetine 40 mg capsule 40 mg PO DAILY Qty: 30 1RF Rx Instructions: Start after 1 month on 20 mg. fluoxetine [Prozac] 20 mg capsule 20 mg PO DAILY Qty: 30 0RF trazodone 50 mg tablet 100 mg PO .HS PRN (Reason: insomnia) Qty: 60 2RF Excedrin Extra Strength 250-250-65 mg tablet 1 tab PO Q6H PRN Tylenol Extra Strength 500 mg Tablet 500 - 1,000 mg PO PRN Discharge Orders: Discharge ED (Routine); Ordered 01/18/24 Ordered By: Teddy Shahid Patient Instructions: Opioid Safety, Pain Management, Vomiting - Adult Activity Restrictions/Additional Instructions: Follow a liquid diet for the next 24 hours. Take nausea medication scheduled every 4 hours while awake for the next 24 hours whether you are nauseated or not. You may take it as you needed following that. Return for development of abdominal pain, blood in the stool or vomit, inability to control fever, vomiting liquids or medications, any other concerning symptoms. See your doctor this week. Coding Level of Care Code ED Bread Molder for Fely Borden
== END 2024-01-18 04:49 | disposition home or self-care (01) ==
PROVIDERS: Nurse Practitioner Family; Emergency Provider Emergency Medicine
DX: R11.11 Vomiting without nausea (principal); Z11.52 Encounter for screening for COVID-19
CPT/HCPCS: 0241U; 80053; 80306; 81001; 83690; 85025; 86140; 96361; 96374; 96375; 99284; J1885; J2405; J7030

== ENCOUNTER 2024-02-01 02:12 | Emergency (ER) | payer MEDICAID, SELFPAY ==
[2024-02-01 02:33] VITALS: BP 131/95; PULSE 111; RESP 20; TEMP 36.6; O2SAT 98; BMI 33.0
--- NOTE | 2024-02-01 02:56 | ECG_ITS ---
[employer] Test Date: 2024-02-01 Pat Name: Francesco Dumont Department: Room: Gender: Male Elementary Instructional Coach: : 2000 Requested By: Teddy Sandoval Order Number: [id number] Cabrales MD: Onofre Pat M.D. Measurements Intervals [place] Rate: 89 P: 57 IN: 141 QRS: 47 QRSD: 78 T: 34 QT: 318 QTc: 387 Interpretive Statements SINUS RHYTHM Compared to ECG 01/11/2023 15:34:43 Sinus tachycardia no longer present Myocardial infarct finding no longer present Electronically Signed On 02-02-2024 14:10:46 CDT by Onofre Pat M.D. [email or web address]
== END 2024-02-01 04:52 | disposition left against medical advice (07) ==
LOC: ER 02:16
PROVIDERS: Emergency Provider Family Medicine
DX: Z53.21 Procedure and treatment not carried out due to patient leaving prior to being seen by health care provider (principal)
CPT/HCPCS: 93005

== ENCOUNTER → 2024-09-29 10:54 | Outpatient (BNVA) | payer OTHER, SELFPAY | PROVIDERS: Visit Provider Nurse Practitioner | DX: F90.9 Attention-deficit hyperactivity disorder, unspecified type (principal); F84.0 Autistic disorder; F81.9 Developmental disorder of scholastic skills, unspecified; F43.9 Reaction to severe stress, unspecified | CPT/HCPCS: 80061; 83036 ==

== ENCOUNTER 2024-10-31 17:55 | Emergency (ER) | payer MEDICAID, SELFPAY ==
--- OUTSIDE RECORDS SUMMARY | 2023-09-04 05:00 | XMS_ITS ---
Author Organization [facility] Address [address] [place] [address] Care Team Providers Care Backup Sawyer Name Role Phone Cristina Camejont Unavailable [phone] REASON FOR VISIT F/U on BP and Labs Medications Medication SIG (Take, Route, Frequency, Duration) Notes Start Date End Date Status Losartan Potassium 50 MG 1 tablet Orally Once a day; Duration: 30 days 07/29/2023 Active FLUoxetine HCl 40 MG 1 capsule Orally On ce a day; Duration: 90 days 07/22/2023 Active traZODone HCl 50 MG 1 tablet at bedtime as needed for sleep Orally Once a day; Duration: 30 days 07/22/2023 Active Encounters Encounter Location Date Provider Diagnosis [facility] [address] [place] [address] 09/04/2023 Shakeel Camejo Plan Of Treatment No Information Progress Notes * LYLA HAMILTONDOB:[birth year] (24 yo M)Acc No.[id number]:09/04/2023 Progress Notes Patient: LYLA APARICIO Provider: Star Camejo :2000 A ge:23 Y S ex:Male Date:09/04/2023 Address:[address], [place], [place]-[address] Subjective: * Chief Complaints: * 1 . F/U on BP and Labs. * Medical History: * Medications: T aking FLUoxetine HCl 40 MG Capsule 1 capsule Orally Once a day , Taking traZODone HCl 50 MG Tablet 1 tablet at bedtime as needed for sleep Orally Once a day , Taking Losartan Potassium 50 MG Tablet 1 tablet Orally Once a day Objective: * Vitals: Assessment: Plan: * Treatment: * Billing Information: * Visit Code: * Procedure Codes: * Electronic signature of Brittany Camejo MD on 10/31/2024 at 05:00 PM MDT Sign off status: Pending * Provider: Star Camejo Date: 09/04/2023 Generated for Rayray momin/Adrian/Supriya on: 10/31/2024 05:00 PM HANNAH
[2024-10-01 16:00] VITALS: BP 147/73; BMI 34.3
[2024-10-31 17:56] VITALS: BP 113/68; PULSE 108; TEMP 36.9; O2SAT 96
--- OUTSIDE RECORDS SUMMARY | 2024-10-31 18:01 | XMS_ITS | Data Portability ---
Author Organization [facility] Address [address] [place] [address] Care Team Providers Care [employer] Washer Name Role Phone JUAN CANO Primary Care Provider Unavailabl e Assessment No assessment recorded. Plan of Treatment Reminders Order Date Submit Date Provider Last Modified By Organization Details Last Modified Time Details Appointments None recorded. Lab None recorded. Referral None recorded. Procedures None recorded. Surgeries None recorded. Imaging None recorded. Medication Orders tizanidine 4 mg tablet 2024 025 [facility], [address], [place], [address], 14:03:43 prednisone 20 mg tablet 2024 025 [facility], [address], [address], 05:00:57 Polytrim 10,000 unit-1 mg/mL eye drops 2024 025 [facility], [address], [place], [address], 13:34:21 prednisone 20 mg tablet 2023 025 [facility] [address], [address], [place], [address], 05:00:57 meloxicam 15 mg tablet 2023 024 [facility] [address], [address], [place], [address], 4 15:26:58 mupirocin 2 % topical ointment 2022 023 [email or web address] [facility] [address], [address], [place], [address], 4 15:17:21 Patient TargetsNo targets recorded. Patient InstructionsNo instructions recorded. Reason for Referral None Reported. Problems Name Problem SNOMED Code Status Onset Date Resolution Date Notes Provider Name and Address Organization Details Recorded Time Impetigo 65576473 Active 2022 Juan Cano MD [address] [place] [address], [phone], [facility] 3 16:13:13 Tendinitis of left shoulder 9050171119317 103 Active 2023 Juan Cano MD [address] [place] [address], [address], [facility] 4 15:26:16 Conjunctivi tis 7434468 Active 2024 Juan Cano MD [address] [place] [address], [phone], [facility] 5 15:17:29 Problem Notes None recorded. Medical Equipment None Reported. Allergies No known drug allergies Medications Name Sig Start Date Stop Date Status Note LastModified by Organization Details LastModified Time fluoxetine 40 mg capsule TAKE 1 CAPSULE BY MOUTH ONCE DAILY. START AFTER 1 MONTH ON 20MG active Not Available Not Available No t Available trazodone 50 mg tablet TAKE 2 TABLETS BY MOUTH AT BEDTIME NEEDED FOR INSOMNIA active Not Available Not Available No t Available tizanidine 4 mg tablet Take 1 tablet twice a day by oral route as needed. 2024 active Not Available Not Available Not Avai lable meloxicam 15 mg tablet TAKE 1 TABLET BY MOUTH ONCE DAILY active Not Available Not Available No t Available prednisone 20 mg tablet Take 2 tablets every day by oral route for 5 days. 10/23 completed Not Available Not Available Not Available ofloxacin 0.3 % ear drops INSTILL 10 DROPS INTO AFFECTED EAR(S) BY OTIC ROUTE ONCE DAILY 01/28 completed Not Available Not Available Not Available Polytrim 10,000 unit-1 mg/mL eye drops INSTILL 1 DROP INTO AFFECTED EYE(S) BY OPHTHALMI C ROUTE EVERY 6 HOURS 10/11 completed Not Available Not Available Not Available mupirocin 2 % topical ointment APPLY A SMALL AMOUNT TO THE AFFECTED AREA BY TOPICAL ROUTE 3 TIMES PER DAY 01/28 completed Not Available Not Available Not Available fluoxetine 20 mg capsule TAKE 1 CAPSULE BY MOUTH ONCE DAILY 10/11 completed Not Available Not Available Not Available tramadol 01/28 completed Not Available Not Available Not Available Prozac 01/28 completed Not Available Not Available Not Available Vitals Date Recorded Body height Oxygen saturation Oxygen saturation in Arterial blood by Pulse oximetry Body mass index (BMI) Body weight Body temperature Respiratory rate Systolic And Diastolic Provider Name and Address Organization Details Last Updated DateTime 5 180.34 cm 98 % 98 % 32.3 kg/m2 000337. 27 g 98.2 [degF] 90 /min 136/84 mm[Hg] Juan Cano MD [address] [place] [address], [phone], [facility] 5 15:14:11 Date Recorded Body height Body mass index (BMI) Body weight Oxygen saturation Oxygen saturation in Arterial blood by Pulse oximetry Heart rate Body temperature Systolic And Diastolic Provider Name and Address Organization Details Last Updated DateTime 5 180.34 cm 34.9 kg/m2 968844. 49 g 98 % 98 % 88 /min 98.6 [degF] 158/90 mm[Hg] Sendy Flaehrty [facility] 5 13:38:29 Date Recorded Body height Respiratory rate Body mass index (BMI) Body weight Body temperature Heart rate Oxygen saturation Oxygen saturation in Arterial blood by Pulse oximetry Systolic And Diastolic Provider Name and Address Organization Details Last Updated DateTime 3 180.34 cm 20 /min 36.3 kg/m2 896736. 02 g 97.9 [degF] 66 /min 98 % 98 % 130/76 mm[Hg] LANG RIVERAG [facility] 3 16:06:47 Date Recorded Body weight Body temperature Heart rate Oxygen saturation Oxygen saturation in Arterial blood by Pulse oximetry Body mass index (BMI) Body height Provider Name and Address Organization Details Last Updated DateTime 4 419390. 09 g 98.3 [degF] 109 /min 98 % 98 % 33.1 kg/m2 180.34 cm Khadijah Mtaa [facility] 4 15:17:14 Date Recorded Body height Body mass index (BMI) Body weight Body temperature Heart rate Oxygen saturation Oxygen saturation in Arterial blood by Pulse oximetry Systolic And Diastolic Provider Name and Address Organization Details Last Updated DateTime 4 180.34 cm 32.1 kg/m2 214936. 25 g 98.2 [degF] 96 /min 98 % 98 % 150/82 mm[Hg] Khadijah Adolfo [facility] 4 15:44:41 Social History Question Answer Notes LastModified by [employer] Details LastModified Time Tobacco Smoking Status Current Some Day Smoker Khadijah Adolfo [facility] 01/29/2024 15:18:54 What Was The Date Of Your Most Recent Tobacco Screening? 10/11/2024 Information not available 10/11/2024 Sex: Unknown Functional Status Question Answer Note LastModified by [employer] Details LastModified Time Do you or have you ever used any other forms of tobacco or nicotine? Yes Information not available 10/11/2024 Do you or have you ever used e-cigarettes or vape? Current user of electronic cigarettes Information not available 10/11/2024 Mental Status None recorded. Family History Nothing Reported. Medical History No medical history recorded. Immunizations Vaccine Type Date Status Note Provider Nam e and Address Organization Details Recorded Time DTaP 0 completed Not Available [facility] 10/11/2024 13:30:06 Hep B, unspecified formulation 0 completed Not Available [facility] 10/11/2024 13:30:06 DTaP 0 completed Not Available [facility] 10/11/2024 13:30:06 Hep B, unspecified formulation 0 completed Not Available [facility] 10/11/2024 13:30:06 polio, unspecified formulation 1 completed Not Available [facility] 10/11/2024 13:30:06 DTaP 1 completed Not Available [facility] 10/11/2024 13:30:06 polio, unspecified formulation 1 completed Not Available [facility] 10/11/2024 13:30:06 MMR 1 completed Not Available [facility] 10/11/2024 13:30:06 Hep B, unspecified formulation 1 completed Not Available [facility] 10/11/2024 13:30:06 DTaP 1 completed Not Available [facility] 10/11/2024 13:30:06 varicella 4 completed Not Available [facility] 10/11/2024 13:30:06 MMR 5 completed Not Available [facility] 10/11/2024 13:30:06 polio, unspecified formulation 5 completed Not Available [facility] 10/11/2024 13:30:06 DTaP 6 completed Not Available [facility] 10/11/2024 13:30:06 varicella 7 completed Not Available [facility] 10/11/2024 13:30:06 polio, unspecified formulation 1 completed Not Available [facility] 10/11/2024 13:30:06 Tdap 5 completed Not Available [facility] 10/11/2024 13:30:06 meningococcal ACWY, unspecified formulation 5 completed Not Available [facility] 10/11/2024 13:30:06 Hep A, adult 9 completed Not Available [facility] 10/11/2024 13:30:06 meningococcal MCV4P 9 completed Not Available [facility] 10/11/2024 13:30:06 Hep A, adult 0 completed Not Available [facility] 10/11/2024 13:30:06 Past Encounters Encounter ID Performer Location Encounter Start Date Encounter Closed Date Diagnosis/Indication Diagnosis SNOMED-CT Code Diagnosis ICD10 Code Diagnosis Note [id number] TJ SANDOVAL [facility] ([facility]) [address] [place] [phone] 5 07/22/2022 11:30:58 07/30/2022 12:23:03 Acute otitis externa 08039070 H60.867 [id number] Juan Cano MD [facility] ([facility]) [address] [place] [phone] 5 01/15/2023 15:57:45 01/15/2023 16:30:46 Impetigo 60413742 L01.00 Exam is consistent with impetigo. Recommend treating with mupirocin. Discussed skin care. [id number] Juan Cano MD [facility] ([facility]) [address] [place] [phone] 5 01/29/2024 15:10:40 01/29/2024 15:47:44 Tendinitis of left shoulder 3477317653 967576 M75.92 Tendinitis of the left shoulder is likely what is going on with the patient. Handout provided for home exercises and will start anti-infla mmatory to use as needed. Patient was encouraged to follow-up with his PCP, Dr. Whitfield if symptoms do not improve. [id number] TJ ACOSTA [facility] ([facility]) [address] [place] [phone] 5 03/05/2024 15:36:13 03/05/2024 16:31:25 Pain of bilateral hands 8046587904 2766904 M79.641 Pain in bilateral hands. Discussed use of steroid to treat inflammati on from yardwork. F/u with PCP if symptoms worsen or do not improve. [id number] Juan Cano MD [facility] ([facility]) [address] [place] [id number] 5 05/27/2024 14:47:47 06/02/2024 16:47:20 Conjunctivitis 1527128 H10.9 Exam is concerning for conjunctiv itis. No other abnormal findings noted. Will start antibiotic eyedrops. [id number] TJ ACOSTA [facility] ([facility]) [address] [place] [phone] 5 10/11/2024 13:26:53 10/18/2024 12:49:52 Spasm of cervical paraspinous muscle 981629743 M62.838 discussed use of meds, apply a warm compress/h eating pad to the neck for 10 minutes every 2 hours while awake. Take ibuprofen twice a day. Perform slow ROM exercises 3 times a day. F/u if you develop worsening symptoms. Health Concerns Section Related Observation LastModified by Organization Detai ls LastModified Time None Recorded Concern Status LastModified by Organization Details LastModified Time None Recorded Advance Directives Directive None Recorded Payers Insurance Date Sequence Insurance Name Policy Number Policy Man Covered Member ID Man Member ID Guarantor Name 10/18/[address] [facility] (HMO) DORITA Dumont [id number] Francesco Dumont 10/19/2024 [place] [facility] (INSTITUTIONAL ) CLAUDIA Francescoholger Dumont [id number] Francesco Dumont 10/19/[address] [facility] - [place]CHANGE PLAN - [place] NARENDRA Francesco Dumont [id number] Francesco Dumont 10/19/[address] [facility] [place] CLAUDIA Dumont [id number] Francesco Dumont 10/19/[address] [facility] ([facility]) DORITA Dumont [id number] Francesco Dumont Notes Date Note Type Note Provider Name and Address Organization Details Recorded Time 01/15/2023 text/html This is a 22-year-old gentleman that comes in today with multiple lesions on his ears and nares. Patient has noted some crusting over the lesions. No other concerns today. Juan Cano MD [address] [place], [address], [facility] 01/15/2023 16:29:50 01/29/2024 text/html This is a 23-year-old gentleman that comes in today for evaluation of left shoulder pain. The patient denies any specific injury. Patient states that he used to work at the [employer] and it started hurting during that time. Patient does not recall any specific exacerbating factor. Juan Cano MD [address] [place] [address], [phone], [facility] 01/29/2024 16:22:46 03/05/2024 text/html walk in pt.Pt c/ o bilateral hand pain for 2 weeks. Denies swelling, redness, warmth or trauma. States this started after he did yardwork. His mother is worried he has arthritis. TJ ACOSTA [address] [place] [address], [phone], [facility] 03/05/2024 16:02:18 05/27/2024 text/html This is a 24-year-old gentleman that comes in today with right ear pain and redness of right eye. Drainage from eye noted. Denies FB Juan Cano MD [address] [place] [address], [phone], [facility] 06/02/2024 12:17:07 10/11/2024 text/html walk inx 1 day neck pain hurts to turn neck to the right. Denies trauma. States he woke up this way. No fever. Feels well otherwise. has not taken any meds for this. denies radiation of symptoms or weakness to arms. TJ ACOSTA [address] [place], [address], [facility] 10/16/2024 07:37:51
--- OUTSIDE RECORDS SUMMARY | 2024-10-31 18:01 | XMS_ITS | Patient Health Record ---
Author Organization [employer] [facility] Address [address] [place] [address] Support Name Relationship Address Phone JOYLYLA TOURE Guarantor Unknown [phone] Reason For Referral No Information Medications Medication SIG (Take, Route, Frequency, Duration) [...] a day; Duration: 30 days 07/22/2023 Active Problems Problem Type SNOMED Code ICD Code Onset Dates Problem Status W/U Status Risk Notes Problem Pure hypercholesterolemia (653033207) Elevated LDL cholesterol level (E78.00) Active confirmed Problem Anxiety (16574732) Anxiety (F41.9) Active confirmed Problem Insomnia (414774082) Insomnia, unspecified type (G47.00) Active confirmed Problem Essential hypertensi on (81329934) Hypertension, unspecified type (I10) Active confirmed Problem Increased hemoglobin (650968843) Elevated hemoglobin (D58.2) Active confirmed Problem Bilateral low back pain without sciatica, unspecified chronicity (M54.50) Active confirmed Plan Of Treatment No Information Insurance Providers Payer Name Payer Address Payer Phone Subscriber Number Group Number Insured Name Patient Relationship to Insured Coverage Start Date Coverage End Date Medicaid [address] [place], [place] [id number] LYLA HAMILTON Self - patient is the insured
[2024-10-31 19:22] LABS: Hematocrit 50.1 % (37-53); Hemoglobin 17.00 g/dL (11.27-16.99); Mean Corpuscular HGB Conc 33.9 g/dL (30-55); Mean Corpuscular Hemoglobin 29.8 pg (27-33); Mean Corpuscular Volume 87.7 fl (82-101); Nucleated Red Blood Cells % 0 %; Platelet Count 301 10^3/cmm (157-399); Red Blood Count 5.71 10^6/uL (3.85-5.65); White Blood Count 18.85 10^3/uL (3.29-11.43)
[2024-10-31 19:40] LABS: Alanine Aminotransferase 33 U/L (0-41); Albumin Level 4.2 g/dL (3.5-5.2); Alkaline Phosphatase 92 U/L (40-130); Anion Gap 17.5 (5-19); Aspartate Amino Transferase 18 U/L (0-40); Blood Urea Nitrogen 12 mg/dL (6-20); Calcium 9.3 mg/dL (8.5-10.5); Carbon Dioxide 25 mmol/L (22-29); Chloride 101 mmol/L (98-107); Creatinine Clr Calc Pharmacy 144.6112; Globulin 3.3 g/dL (1.3-4.6); Glucose 85 mg/dL (65-115); Lipase 19 U/L (13-60); Osmolality Calculated 287 mOsm/kg (285-295); Potassium 4.5 mmol/L (3.5-5.1); Sodium 139 mmol/L (136-145); Total Protein 7.5 g/dL (6.6-8.7)
--- NOTE | 2024-10-31 19:58 | CTR_ITS ---
PROCEDURE INFORMATION: Exam: CT Abdomen And Pelvis With Contrast Exam date and time: 10/31/2024 8:42 PM Age: 24 years old Clinical indication: Pain and abnormal findings; Abnormal lab test; Elevated wbc; Nausea and vomiting; Abdominal pain; Generalized; Diffuse abd pain with n/v. Wbc 19k. ; Additional info: Abd pain leukocytosis TECHNIQUE: Imaging protocol: Computed tomography of the abdomen and pelvis with contrast. Radiation optimization: All CT scans at this facility use at least one of these dose optimization techniques: automated exposure control; mA and/or kV adjustment per patient size (includes targeted exams where dose is matched to clinical indication); or iterative reconstruction. Contrast material: OMNI 350; Contrast volume: 100 ml; Contrast route: INTRAVENOUS (IV); COMPARISON: CT abdomen pelvis w con* [id number] 01/15/2020 7:41 PM RADIATION DOSE METRICS: Total DLP (mGy-cm): 1014.91 FINDINGS: Liver: No discrete liver lesions are apparent. Smooth hepatic contour. Gallbladder and biliary ducts: No gallbladder distension or inflammation. No calcified gallstones are apparent. No common bile duct abnormality is evident. Pancreas: No evidence of pancreatitis. No ductal dilation. Spleen: Spleen is enlarged measuring 15.7 cm on axial imaging. Adrenal glands: Adrenal glands are within expected limits. Kidneys and ureters: No renal or ureteral calculi are identified. No hydronephrosis. Stomach and bowel: Few scattered air-fluid levels within the bowel. Some mild hyperemia. No inflammatory wall thickening or abnormal bowel dilatation, however. Appendix: No evidence of appendicitis. Intraperitoneal space: No free air. No significant fluid collection. Vasculature: No abdominal aortic aneurysm. Lymph nodes: No pathologically enlarged lymph nodes by CT size criteria. Urinary bladder: Unremarkable as visualized. Reproductive: Unremarkable as visualized. Bones/joints: No acute osseous abnormalities. Soft tissues: Unremarkable. CT/CT abdomen pelvis w con* [id number] IMPRESSION: 1. Findings could be consistent with mild enteritis. 2. Splenomegaly.
--- NOTE | 2024-10-31 20:11 | W.ED.ABDPA2 ---
HPI - Abdominal Pain General: Chief Complaint: Abdominal Pain Stated Complaint: dehydration, abd pain Time Seen by Provider: 10/31/24 19:34 History of Present Illness: 24-year-old male complaining of 2 days of generalized abdominal pain, diarrhea, hot and cold chills. He has been nauseated since earlier today. No vomiting. No blood in the stool. No sick contacts. He says that he took a shower to try to help with the belly pain, but it seemed to get worse. No history of abdominal surgery. He believes he is dehydrated from the heat and the diarrhea. Related Data Home Medications ?Medication ?Instructions ?Recorded ?Confirmed acetaminophen 500 mg tablet 500 - 1,000 mg PO PRN 01/18/20 09/29/24 (Tylenol Extra Strength) [id number] 250 1 tab PO Q6H PRN 06/03/22 09/29/24 mg-250 mg-65 mg tablet (Excedrin Extra Strength) Previous Rx's ?Medication ?Instructions ?Recorded fluoxetine 20 mg capsule (Prozac) 20 mg PO DAILY #30 caps 09/07/24 trazodone 50 mg tablet 100 mg (2 x 50 mg) PO .HS PRN 09/07/24 insomnia #60 tabs metronidazole 500 mg tablet 500 mg PO BID 7 days #14 tabs 10/31/24 ondansetron HCl 4 mg tablet 4 mg PO Q8H PRN nausea and 10/31/24 vomiting #14 tabs Allergies Allergy/AdvReac Type Severity Reaction Status Date / Time No Known Allergies Allergy Verified 10/31/24 18:04 [facility] ED PFS: Medical History (Updated 10/31/24 @ 22:22 by Teddy Shahid DO) Vapes nicotine containing substance Psychiatric care No significant past medical history Surgical History No significant past surgical history Social History (Updated 09/29/24 @ 10:56 by Kathleen Han LPN) Smoking and tobacco/nicotine status: current every day tobacco/nicotine user Alcohol intake: current Alcohol intake frequency: holidays/special occasions only Substance/Drug Use: current Substance/Drug use frequency: Special occassions/opportunity only Adopted: No Caregiver/support person: No Lives independently: No Household members: significant other Housing: House Marital status: Single Highest education level completed: Some College, No Degree Education level details: 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 service: No Current occupational status: employed 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 Current occupational exposures/hazards: No Pets and animals: No Do you think of yourself as: Straight/Heterosexual Current gender identity: Male Laurie/Congregational: None Special laurie needs: No Agree to transfusion: Yes Physical Exam Const: COMMON NORMALS: no acute distress GENERAL APPEARANCE: cooperative; not ill appearing and not frail appearing HENMT: COMMON NORMALS: normocephalic, atraumatic and Normal external nose present HEAD & SCALP: normocephalic and atraumatic FACE & SINUS: normal facial exam and face symmetric NOSE: Normal external nose present Eye: COMMON NORMALS: Equal, round and reactive pupils present and EOMs intact bilaterally PUPIL: Yes Equal, round and reactive pupils present Neck/C-Spine: GENERAL: Yes trachea midline Chest: CHEST: Yes Symmetrical chest wall rise Resp: COMMON NORMALS: normal respiratory effort, No retractions, No use of accessory muscles and clear to auscultation bilaterally AUSCULTATION: clear to auscultation bilaterally Cardio: COMMON NORMALS: regular rate and regular rhythm RATE: regular rate RHYTHM: regular rhythm GI: COMMON NORMALS: Normal to inspection, nondistended, normoactive bowel sounds present PALPATION: Yes Tenderness to palpation present (GI) and Yes Guarding due to palpation present (GI) Extremity: COMMON NORMALS: no pedal edema Neuro: ASIA COMA SCALE: document GCS findings [place] coma scale eye opening: Spontaneous [place] coma scale verbal response: Orientated [place] coma scale motor response: Obey commands [place] coma scale total score: 15 SENSORY EXAM: Yes extremities (intact) Psych: COMMON NORMALS: speech normal SPEECH: Yes normal speech Skin: COMMON NORMALS: no rashes or lesions noted GENERAL SKIN EXAM: no rashes or lesions noted Course Vital Signs: Vital signs: Vital Signs Temperature 98.4 F 10/31/24 17:56 Pulse Rate 97 10/31/24 20:34 Blood Pressure 132/79 10/31/24 20:34 Pulse Oximetry 94 10/31/24 20:34 Oxygen Delivery Me thod Room Air 10/31/24 20:34 MDM - Abdominal Pain Medical Decision Making Patient's white blood cell count is 19. Hemoglobin is 17. Creatinine is 1. Urinalysis is negative. Lactic acid is 1.2. CRP is 14. CPK is 328. He is given 2 L of IV fluid. His vitals are stable. He is afebrile. CT shows findings consistent with mild enteritis. He will be placed on metronidazole. A dose was given here. He will continue this. Antiemetics. Plenty of clear liquids. He is to stay in a cool environment. Will need outpatient follow-up. Return for worsening symptoms despite treatment. Lab Data 10/31/24 19:17 10/31/24 19:17 Labs/Radiology: Radiology Impressions Abdomen/Pelvis CT 10/31/24 19:58 IMPRESSION: 1. Findings could be consistent with mild enteritis. 2. Splenomegaly. Laboratory Results WBC 18.85 10^3/uL (3.29-11.43) H 10/31/24 19:17 RBC 5.71 10^6/uL (3.85-5.65) H 10/31/24 19:17 Hgb 17.00 g/dL (11.27-16.99) H 10/31/24 19:17 Hct 50.1 % (37-53) 10/31/24 19:17 MCV 87.7 fl (82-101) 10/31/24 19:17 MCH 29.8 pg (27-33) 10/31/24 19:17 MCHC 33.9 g/dL (30-55) 10/31/24 19:17 RDW 12.1 % (12.1-15.1) 10/31/24 19:17 Plt Count 301 10^3/cmm (157-399) 10/31/24 19:17 MPV 9.4 fL (7.4-10.4) 10/31/24 19:17 Neut % (Auto) 83.1 % 10/31/24 19:17 Lymph % (Auto) 10.3 % 10/31/24 19:17 [place] % (Auto) 5.3 % 10/31/24 19:17 Eos % (Auto) 0.6 % 10/31/24 19:17 Baso % (Auto) 0.3 % 10/31/24 19:17 Neut # (Auto) 15.68 10^3/uL (1.8-7.7) H 10/31/24 19:17 Lymph # (Auto) 1.9 10^3/uL (0.8-4.8) 10/31/24 19:17 [place] # (Auto) 1.0 10^3/uL (0.2-0.9) H 10/31/24 19:17 Eos # (Auto) 0.1 10^3/uL (0.0-0.8) 10/31/24 19:17 Baso # (Auto) 0.1 10^3/uL (0.0-0.1) 10/31/24 19:17 Nucleated RBC % (auto) 0 % 10/31/24 19:17 Nucleated RBCs # 0.0 /100WBC 10/31/24 19:17 Sodium 139 mmol/L (136-145) 10/31/24 19:17 Potassium 4.5 mmol/L (3.5-5.1) 10/31/24 19:17 Chloride 101 mmol/L (98-107) 10/31/24 19:17 Carbon Dioxide 25 mmol/L (22-29) 10/31/24 19:17 Anion Gap 17.5 (5-19) 10/31/24 19:17 BUN 12 mg/dL (6-20) 10/31/24 19:17 Creatinine 1.0 mg/dL (0.7-1.2) 10/31/24 19:17 GFR Calculation 91.0 mL/min (90-130) 10/31/24 19:17 Glucose 85 mg/dL (65-115) 10/31/24 19:17 Calculated Osmolality 287 mOsm/kg (285-295) 10/31/24 19:17 Lactic Acid 1.2 mmol/L (0.5-2.2) 10/31/24 19:17 Calcium 9.3 mg/dL (8.5-10.5) 10/31/24 19:17 Total Bilirubin 0.8 mg/dL (0.15-1.2) 10/31/24 19:17 AST 18 U/L (0-40) 10/31/24 19:17 ALT 33 U/L (0-41) 10/31/24 19:17 Alkaline Phosphatase 92 U/L (40-130) 10/31/24 19:17 Creatine Kinase 328 U/L (39-308) H* 10/31/24 19:17 C-Reactive Protein 14.0 mg/L (0.0-4.9) H 10/31/24 19:17 Total Protein 7.5 g/dL (6.6-8.7) 10/31/24 19:17 Albumin 4.2 g/dL (3.5-5.2) 10/31/24 19:17 Globulin 3.3 g/dL (1.3-4.6) 10/31/24 19:17 Lipase 19 U/L (13-60) 10/31/24 19:17 Urine Color Yellow (Yellow) 10/31/24 20:20 Urine Appearance Clear (CLEAR) 10/31/24 20:20 Urine pH 8.0 (5-7) A 10/31/24 20:20 Ur Specific Hernandez 1.022 (1.005-1.030) 10/31/24 20:20 Urine Protein Negative (Negative) 10/31/24 20:20 Urine Glucose (UA) Negative (Normal) 10/31/24 20:20 Urine Ketones Negative (Negative) 10/31/24 20:20 Urine Blood Negative (Negative) 10/31/24 20:20 Urine Nitrate Negative (Negative) 10/31/24 20:20 Urine Bilirubin Negative (Negative) 10/31/24 20:20 Urine Urobilinogen 0.2 mg/dL (Negative) 10/31/24 20:20 Ur Leukocyte Esterase Negative (Negative) 10/31/24 20:20 Urine RBC 0-2 /hpf (0-2) 10/31/24 20:20 Urine WBC 0-5 /hpf (0-5) 10/31/24 20:20 Ur Squamous Epith Cells 0-5 /hpf (0-5) 10/31/24 20:20 Amorphous Sediment Not Reportable 10/31/24 20:20 Urine Bacteria None seen /hpf (NONE) 10/31/24 20:20 Hyaline Casts 0-4 /lpf H 10/31/24 20:20 All radiology interpretation(s) finalized by discharge Discharge Plan Discharge Patient Disposition: Home Clinical Impression: Enteritis Condition: Stable Prescriptions: New metronidazole 500 mg tablet 500 mg PO BID 7 Days Qty: 14 0RF Continued ondansetron HCl 4 mg tablet 4 mg PO Q8H PRN (Reason: nausea and vomiting) Qty: 14 0RF No Action fluoxetine [Prozac] 20 mg capsule 20 mg PO DAILY Qty: 30 1RF trazodone 50 mg tablet 100 mg PO .HS PRN (Reason: insomnia) Qty: 60 1RF Excedrin Extra Strength 250-250-65 mg tablet 1 tab PO Q6H PRN Tylenol Extra Strength 500 mg Tablet 500 - 1,000 mg PO PRN Discharge Orders: Discharge ED (Routine); Ordered 10/31/24 Ordered By: Teddy Shahid Patient Instructions: Enteritis (ED), Opioid Safety, Pain Management, Patient Portal & Humberto Instructions Activity Restrictions/Additional Instructions: Plenty of clear liquids for the next 48 hours. Follow a liquid diet for 24 hours, then increase your diet slowly following that. Return for problems. Call your doctor tomorrow for follow-up appointment. Antibiotics as directed. Use nausea medicine as needed. 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
[2024-10-31] MEDS: ondansetron 2 mg/ML SDV 2 mL 4 MG IVP (20:16)
[2024-10-31 20:23] LABS: Lactic Sepsis W/Reflex 1.2 mmol/L (0.5-2.2)
[2024-10-31 20:34] VITALS: BP 132/79; PULSE 97; O2SAT 94
[2024-10-31 20:39] LABS: Glucose Urine UA Negative (Normal); Nitrate Urine Negative (Negative); Specific Gravity, Urine 1.022 (1.005-1.030)
[2024-10-31] MEDS: iohexol 350 mg/mL 500 mL Btl (per mL) IV (20:43)
[2024-10-31] MEDS: lidocaine 2% viscous 15 ML, aluminum-mag hydrox-simethicon 30 ML, sucralfate oral liq 1 GM PO (22:26)
[2024-10-31] MEDS: ondansetron 2 mg/ML SDV 2 mL 8 MG IVP (23:17)
[2024-10-31 23:49] VITALS: BP 171/97; PULSE 100; RESP 16; O2SAT 98
== END 2024-10-31 23:50 | disposition home or self-care (01) ==
PROVIDERS: Emergency Medicine; Emergency Provider Emergency Medicine
DX: K52.9 Noninfective gastroenteritis and colitis, unspecified (principal); Z72.0 Tobacco use
CPT/HCPCS: 36415; 74177; 80053; 81001; 82550; 83605; 83690; 85025; 86140; 96361; 96374; 96375; 96376; 99285; J1885; J2405; J7030; J9999

== ENCOUNTER 2025-02-09 20:36 | Emergency (ER) | payer MEDICAID, SELFPAY ==
--- OUTSIDE RECORDS SUMMARY | 2023-09-04 05:00 | XMS_ITS ---
Author Organization [facility] Address [address] [place] [address] Care Team Providers Care Road Roller Operator Name Role Phone DR. Shakeel Camejo Unavailable [phone] REASON FOR VISIT F/U on BP and [...] Active Encounters Encounter Location Date Provider Diagnosis [facility] [address] [place] [address] 09/04/2023 Shakeel Camejo Plan Of Treatment No Information Progress Notes * LYLA HAMILTONDOB:[birth year] (24 yo M)Acc No.[id number]:09/04/2023 Progress Notes Patient: LYLA APARICIO Provider: Star Camejo :2000 A ge:23 Y S ex:Male Date:09/04/2023 Address:[facility] [address], [place]-[address] Subjective: * Chief Complaints: * F /U [...] signature of DR. Shakeel Camejo MD on 02/09/2025 at 07:39 PM MDT Sign off status: Pending * Provider: Star Camejo Date: 0 09/04/2023 Generated for Rayray momin/Adrian/Supriya on: 1 07:39 PM T
[2024-10-01 16:00] VITALS: BP 147/73; BMI 34.3
[2025-02-09 20:40] VITALS: BP 158/95; PULSE 82; RESP 16; TEMP 36.7; O2SAT 97
--- OUTSIDE RECORDS SUMMARY | 2025-02-09 20:40 | XMS_ITS | Patient Health Record ---
Author Organization [facility] Address [address] [place] [address] Support Name Relationship Address Phone LYLA HAMILTON Guarantor Unknown [phone] Reason For Referral No Information Medications Medication [...] W/U Status Risk Notes Problem Pure hypercholesterolemia (442367051) Elevated LDL cholesterol level (E78.00) Active confirmed Problem Anxiety (60063221) Anxiety (F41.9) Active confirmed Problem Insomnia (554953115) Insomnia, unspecified type (G47.00) Active confirmed Problem Essential hypertensi on (09405488) Hypertension, unspecified type (I10) Active confirmed Problem Increased hemoglobin (980747891) Elevated hemoglobin (D58.2) Active confirmed Problem Bilateral low back pain without sciatica, unspecified chronicity (M54.50) Active confirmed Plan Of Treatment No Information Insurance Providers Payer Name Payer Address Payer Phone Subscriber Number Group Number Insured Name Patient Relationship to Insured Coverage Start Date Coverage End Date Medicaid [address] [place], [place] [id number] LYLA HAMILTON Self - patient is the insured
--- NOTE | 2025-02-09 20:54 | XRR_ITS ---
PROCEDURE INFORMATION: Exam: XR Right Ankle Exam date and time: 02/09/2025 9:01 PM Age: 24 years old Clinical indication: Pain; Right; Ankle popped while pushing car; Additional info: Right ankle pain TECHNIQUE: Imaging protocol: Radiologic exam of the right ankle. Views: 3 or more views. COMPARISON: CR XR foot RT min 3V* [id number] 12/22/2019 12:23 AM FINDINGS: Bones/joints: Normal. Soft tissues: Normal. XR/XR ankle RT min 3V* [id number] IMPRESSION: No acute findings.
--- NOTE | 2025-02-09 21:00 | XRR_ITS ---
PROCEDURE INFORMATION: Exam: XR Right Foot Exam date and time: 02/09/2025 9:07 PM Age: 24 years old Clinical indication: Injury or trauma; Other: Ankle popped while pushing car; Sprain or strain; Foot; Right TECHNIQUE: Imaging protocol: Radiologic exam of the right foot. Views: 3 or more views. COMPARISON: CR XR foot RT min 3V* [id number] 12/22/2019 12:23 AM FINDINGS: Bones/joints: No acute fracture. Osseous alignment is normal. Joint spaces are maintained. Soft tissues: Soft tissue edema of the dorsal foot is noted. No displaced fracture is noted. CT foot without contrast can be considered if high suspicion for acute osseous injury is present. XR/XR foot RT min 3V* [id number] IMPRESSION: 1. No displaced fractures. 2. Soft tissue edema of the dorsal foot is noted. CT foot without contrast can be considered if high suspicion for acute osseous injury is present.
--- NOTE | 2025-02-09 21:41 | W.ED.EXTPRO ---
HPI - Extremity Problem General: Chief complaint: Extremity Injury, Lower Stated complaint: Hurt RT foot and ankle Time Seen by Provider: 02/09/25 20:50 History of Present Illness: Patient is a 24-year-old male without previous medical issues, who comes to the ED with pain in his right foot. He describes it as the anterior proximal foot, and right ankle. He states he was helping move and push a car in neutral, when he got done, he felt a pop in his heel. He is having to walk on the forefoot. This occurred 2 hours prior to arrival. Tylenol marginally helped with pain. He is able to extend his foot. No previous injury. Associated symptoms: Deny chest pain or fever(s) Related Data Home Medications ?Medication ?Instructions ?Recorded ?Confirmed acetaminophen 500 mg tablet 500 - 1,000 mg PO PRN 01/18/20 12/10/24 (Tylenol Extra Strength) [id number]-iahgmrwxpctzj-ylqjqsfp 250 1 tab PO Q6H PRN 06/03/22 12/10/24 mg-250 mg-65 mg tablet (Excedrin Extra Strength) Previous Rx's ?Medication ?Instructions ?Recorded fluoxetine 20 mg capsule (Prozac) 20 mg PO DAILY #30 caps 09/07/24 trazodone 50 mg tablet 100 mg (2 x 50 mg) PO .HS PRN 09/07/24 insomnia #60 tabs ondansetron HCl 4 mg tablet 4 mg PO Q8H PRN nausea and 10/31/24 vomiting #14 tabs Allergies Allergy/AdvReac Type Severity Reaction Status Date / Time No Known Allergies Allergy Verified 02/09/25 20:45 Review of Systems General: Reports: 10 or more systems reviewed and unremarkable except in HPI and below Const: Denies: fever(s) or chills Card: Denies: chest pain or palpitations Resp: Denies: dyspnea or non-productive cough GI: Denies: abdominal pain, nausea or vomiting : Denies: flank pain or difficulty urinating Musc: Reports: extremity pain and joint pain; Denies: neck pain, back pain, extremity swelling, joint swelling or joint redness Neuro: Denies: headache(s), numbness in extremities or weakness in extremities Psych: Denies: anxiety or depression [facility] ED PFSH: Medical History (Updated 02/09/25 @ 22:53 by CRISTIAN Haque) Vapes nicotine containing substance Psychiatric care No significant past medical history Surgical History No significant past surgical history Social History (Updated 09/29/24 @ 10:56 by Kathleen Han LPN) Smoking and tobacco/nicotine status: current every day tobacco/nicotine user Alcohol intake: current Alcohol intake frequency: holidays/special occasions only Substance/Drug Use: current Substance/Drug use frequency: Special occassions/opportunity only Adopted: No Caregiver/support person: No Lives independently: No Household members: significant other Housing: House Marital status: Single Highest education level completed: Some College, No Degree Education level details: 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 service: No Current occupational status: employed 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 Current occupational exposures/hazards: No Pets and animals: No Do you think of yourself as: Straight/Heterosexual Current gender identity: Male Laurie/Caodaism: None Special laurie needs: No Agree to transfusion: Yes Physical Exam Const: COMMON NORMALS: no acute distress, average body habitus, patient oriented x3, no limitations, healthy appearing, alert and well nourished Neck/C-Spine: COMMON NORMALS: no JVD Chest: COMMONS NORMALS: normal inspection of the chest and normal palpation of entire chest wall Resp: COMMON NORMALS: normal respiratory effort, No retractions and clear to auscultation bilaterally AUSCULTATION: clear to auscultation bilaterally Cardio: COMMON NORMALS: no JVD, regular rate, regular rhythm, S1 normal heart sound present, S2 normal heart sound present, No gallops present (Cardio), No clicks present (Cardio), No murmurs present (Cardio), No rub (Cardio) and Peripheral pulses 2+ throughout RATE: regular rate RHYTHM: regular rhythm HEART SOUNDS: S1 normal heart sound present and S2 normal heart sound present PERIPHERAL PULSES: Peripheral pulses 2+ throughout GI: COMMON NORMALS: Normal to inspection, nondistended, normoactive bowel sounds present, Soft to palpation, non-tender, No hepatosplenomegaly present, no masses and no bruits PALPATION: Yes Soft to palpation and Yes No hepatosplenomegaly present : COMMON NORMALS: Yes no CVA tenderness BLADDER/KIDNEY EXAM: Yes no CVA tenderness Back/Pelvis: COMMON NORMALS: no CVA tenderness and thoracic and lumbar spine normal to inspection Extremity: NARRATIVE EXTREMITY EXAM: Tenderness in mid medial right foot, and heel. Achilles intact with extension. Neuro: COMMON NORMALS: patient oriented x3 SENSORIUM/ORIENTATION: Yes alert Course Vital Signs: Vital signs: Vital Signs Temperature 98.0 F 02/09/25 20:40 Pulse Rate 82 02/09/25 20:40 Respiratory Rate 16 02/09/25 20:40 Blood Pressure 158/95 02/09/25 20:40 Pulse Oximetry 97 02/09/25 20:40 Oxygen Delivery Me thod Room Air 02/09/25 20:40 MDM - Extremity (Nontraumatic) Medical Decision Making Patient is a pleasant 24-year-old male that presents to the emergency room with a popping sensation to his right heel and pain in his right proximal foot. There is mild edema on x-ray, however no consistent fracture. On physical examination, this is significant for sprain injury. His Achilles is intact. This was another concern with his location of his heel pain. He will be placed in a hard shoe, and recommended Tylenol, and ibuprofen. All of his questions answered satisfaction. Lab Data Radiology Impressions Ankle X-Ray 02/09/25 20:54 IMPRESSION: No acute findings. Foot X-Ray 02/09/25 21:00 IMPRESSION: 1. No displaced fractures. 2. Soft tissue edema of the dorsal foot is noted. CT foot without contrast can be considered if high suspicion for acute osseous injury is present. All radiology interpretation(s) finalized by discharge Discharge Plan Discharge Patient Disposition: Home Clinical Impression: Acute foot pain Qualifiers: Laterality: right Qualified Code(s): M79.671 - Pain in right foot Condition: Stable Prescriptions: No Action fluoxetine [Prozac] 20 mg capsule 20 mg PO DAILY Qty: 30 1RF trazodone 50 mg tablet 100 mg PO .HS PRN (Reason: insomnia) Qty: 60 1RF Excedrin Extra Strength 250-250-65 mg tablet 1 tab PO Q6H PRN Tylenol Extra Strength 500 mg Tablet 500 - 1,000 mg PO PRN ondansetron HCl 4 mg tablet 4 mg PO Q8H PRN (Reason: nausea and vomiting) Qty: 14 0RF Discharge Orders: Discharge ED (Routine); Ordered 02/09/25 Ordered By: Preeti Harry Discharge Diet: Usual diet Discharge Activity: Resume usual activity Patient Instructions: Foot Sprain (ED), Patient Portal & Humberto Instructions Activity Restrictions/Additional Instructions: - Wear postop shoe or hard shoe. - Follow-up with primary care physician to sung-ray for further issues. Thank you for choosing [facility] for your healthcare needs today. You have been screened and evaluated and felt safe for discharge. Health conditions do change or evolve sometimes and as such it is important that you follow up with your Primary Doctor to be re checked, 3-5 days is a general good time frame for follow up. 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
== END 2025-02-09 22:55 | disposition home or self-care (01) ==
PROVIDERS: Emergency Provider Physician Assistant
DX: M79.671 Pain in right foot (principal); Z72.0 Tobacco use
CPT/HCPCS: 73610; 73630; 99283

== ENCOUNTER 2025-03-03 16:09 | Emergency (ER) | payer MEDICAID, SELFPAY ==
--- OUTSIDE RECORDS SUMMARY | 2023-09-04 04:00 | XMS_ITS ---
Author Organization [facility] Address [address] [place] [address] Care Team Providers Care Chief Informatics Officer Name Role Phone DR. Shakeel Camejo Unavailable [phone] REASON FOR VISIT F/U on BP and Labs Medications Medication SIG (Take, Route, Frequency, Duration) Notes Start Date End Date Status Losartan Potassium 50 MG Tablet 1 tablet Orally Once a day; Duration: 30 days 07/29/2023 Active FLUoxetine HCl 40 MG Capsule 1 capsule Orally Once a day; Duration: 90 days 07/22/2023 Active traZODone HCl 50 MG Tablet 1 tablet at b edtime as needed for sleep Orally Once a day; Duration: 30 days 07/22/2023 Active Encounters Encounter Location Date Provider Diagnosis [facility] [address] [place] [address] 09/04/2023 Shakeel Camejo Plan Of Treatment No Information Progress Notes * LYLA HAMILTONDOB:[birth year] (24 yo M)Acc No.[id number]:09/04/2023 Progress Notes Patient: LYLA APARICIO Provider: Star Camejo :2000 A ge:23 Y S ex:Male Date:09/04/2023 Address:[facility] [address], [place] Subjective: * Chief Complaints: * F /U on BP and Labs * Medications: T akingFLUoxetine HCl 40 MG Capsule 1 capsule Orally Once a day traZODone HCl 50 MG Tablet 1 tablet at bedtime as needed for sleep Orally Once a day Losartan Potassium 50 MG Tablet 1 tablet Orally Once a day Taking FLUoxetine HCl 40 MG Capsule 1 capsule Orally Once a day Taking traZODone HCl 50 MG Tablet 1 tablet at bedtime as needed for sleep Orally Once a day Taking Losartan Potassium 50 MG Tablet 1 tablet Orally Once a day Billing Information: * Procedure Codes: * Electronic signature of DR. Shakeel Camejo MD on 03/03/2025 at 03:14 PM MST Sign off status: Pending * Provider: Star Camejo Date: 0 09/04/2023 Generated for Rayray momin/Adrian/Supriya on: 05/03/2024 03:14 PM MST
[2024-10-01 16:00] VITALS: BP 147/73; BMI 34.3
[2025-03-03 16:11] VITALS: BP 121/68; PULSE 106; RESP 18; TEMP 38.5; O2SAT 97
--- OUTSIDE RECORDS SUMMARY | 2025-03-03 16:14 | XMS_ITS | Patient Health Record ---
Author Organization [facility]/[employer] [facility] Address [address] [place] [address] Support Name Relationship Address Phone LYLA HAMILTON Guarantor Unknown [phone] Reason For Referral No Information Medications Medication [...] W/U Status Risk Notes Problem Pure hypercholesterolemia (045375100) Elevated LDL cholesterol level (E78.00) Active confirmed Problem Anxiety (19801223) Anxiety (F41.9) Active confirmed Problem Insomnia (347601769) Insomnia, unspecified type (G47.00) Active confirmed Problem Essential hypertensi on (57363095) Hypertension, unspecified type (I10) Active confirmed Problem Increased hemoglobin (261280347) Elevated hemoglobin (D58.2) Active confirmed Problem Bilateral low back pain without sciatica, unspecified chronicity (M54.50) Active confirmed Plan Of Treatment No Information Insurance Providers Payer Name Payer Address Payer Phone Subscriber Number Group Number Insured Name Patient Relationship to Insured Coverage Start Date Coverage End Date Medicaid [address] [place], [place] [id number] LYLA HAMILTON Self - patient is the insured
--- NOTE | 2025-03-03 16:22 | ED_ITS ---
HPI - General Adult General: Chief complaint: General Medical Stated complaint: weak and dizzy Time Seen by Provider: 03/03/25 16:20 History of Present Illness: This is a healthy 24-year-old man who presents to the emergency room with fever, congestion, cough, nasal drainage for the last couple of days. He does not appear in any distress. No shortness of breath. No altered mental status. He said he did get a little bit dizzy yesterday. Related Data Home Medications ?Medication ?Instructions ?Recorded ?Confirmed acetaminophen 500 mg tablet 500 - 1,000 mg PO PRN 12/2112/10/24 (Tylenol Extra Strength) lbevhlo-azfrzbvsxmpoo-ybsdgowo 250 1 tab PO Q6H PRN 12/10/24 mg-250 mg-65 mg tablet (Excedrin Extra Strength) Previous Rx's ?Medication ?Instructions ?Recorded fluoxetine 20 mg capsule (Prozac) 20 mg PO DAILY #30 c aps 09/07/24 trazodone 50 mg tablet 100 mg (2 x 50 mg) PO .HS LA N 09/07/24 insomnia #60 tabs ondansetron HCl 4 mg tablet 4 mg PO Q8H PRN nausea and 10/31/24 vomiting #14 tabs dexamethasone 6 mg tablet 6 mg PO DAILY 5 days #5 tabs 03/03/25 doxycycline hyclate 100 mg capsule 100 mg PO BID 7 day s #14 caps 03/03/25 ibuprofen 800 mg tablet 800 mg PO Q8H PRN pain #30 t abs 03/03/25 ondansetron 4 mg disintegrating 4 mg PO Q8H PRN nausea and 03/03/25 tablet vomiting #10 tabs Allergies Allergy/AdvReac Type Severity Reaction Status Date / Time No Known Allergies Allergy Verified 02/09/25 20:45 Review of Systems Narrative: Constitutional symptoms: Negative except as documented in HPI. Skin symptoms: Negative except as documented in HPI. Eye symptoms: Negative except as documented in HPI. ENMT symptoms: Negative except as documented in HPI. Respiratory symptoms: Negative except as documented in HPI. Cardiovascular symptoms: Negative except as documented in HPI. Gastrointestinal symptoms: Negative except as documented in HPI. Genitourinary symptoms: Negative except as documented in HPI. Musculoskeletal symptoms: Negative except as documented in HPI. Neurologic symptoms: Negative except as documented in HPI. Psychiatric symptoms: Negative except as documented in HPI. Endocrine symptoms: Negative except as documented in HPI. PFSH ED PFSH: Medical History (Updated 03/03/25 @ 16:23 by Loraine Panchal MD) Vapes nicotine containing substance Psychiatric care No significant past medical history Surgical History No significant past surgical history Social History (Updated 09/29/24 @ 10:56 by Kathleen Han LPN) Smoking and tobacco/nicotine status: current every day tobacco/nicotine user Alcohol intake: current Alcohol intake frequency: holidays/special occasions only Substance/Drug Use: current Substance/Drug use frequency: Special occassions/opportunity only Adopted: No Caregiver/support person: No Lives independently: No Household members: significant other Housing: House Marital status: Single Highest education level completed: Some College, No Degree Education level details: Is taking [employer] courses online service: No Current occupational status: employed 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 Skin: Warm, dry. Head: Normocephalic, atraumatic. Neck: Supple, trachea midline. Eye: Extraocular movements are intact. Ears, nose, mouth and throat: mucosa moist. Cardiovascular: Regular, Normal peripheral perfusion. Respiratory: Lungs are clear to auscultation, respirations are non-labored, breath sounds are equal, Symmetrical chest wall expansion. Gastrointestinal: Soft, Nontender, Non distended Musculoskeletal: Normal ROM, no deformity. Neurological: Alert and oriented, No focal neurological deficit observed. Psychiatric: Cooperative, appropriate mood & affect. Course Vital Signs: Vital signs: Vital Signs Temperature 101.3 F H 03/03/25 16:11 Pulse Rate 97 03/03/25 16:34 Respiratory Rate 16 03/03/25 16:34 Blood Pressure 178/91 03/03/25 16:34 Pulse Oximetry 100 03/03/25 16:34 Oxygen Delivery Me thod Room Air 03/03/25 16:11 MDM - General Adult Medical Decision Making Medical decision making Patient's reason for coming to the emergency room: Cough, congestion, fever, malaise, nausea Social determinants: Patient is employed. I reviewed the patient's medical record. Patient has had some recent ER visits. Most recent in January for foot injury in October for nausea and vomiting I reviewed the patient's current home meds Patient takes fluoxetine at home and trazodone Alternate historians: None Differential diagnosis: including but not limited to and based on the above HPI, review of systems and physical exam: In this young person with fever and upper respiratory symptoms this is likely viral but I will place him on an antibiotic as well as a steroid. Assessment and plan: Febrile illness ?Ibuprofen, first dose dexamethasone and doxycycline in the emergency room - Discharged home - Discussed plan with patient. Answered any questions. - Evaluation and treatment of this problem were appropriate in the emergency setting. No radiology studies performed this visit Discharge Plan Discharge Patient Disposition: Home Clinical Impression: Acute febrile illness Condition: Stable Prescriptions: New doxycycline hyclate 100 mg capsule 100 mg PO BID 7 Days Qty: 14 0RF dexamethasone 6 mg tablet 6 mg PO DAILY 5 Days Qty: 5 0RF ibuprofen 800 mg tablet 800 mg PO Q8H PRN (Reason: pain) Qty: 30 0RF ondansetron 4 mg tablet,disintegrating 4 mg PO Q8H PRN (Reason: nausea and vomiting) Qty: 10 0RF No Action fluoxetine [Prozac] 20 mg capsule 20 mg PO DAILY Qty: 30 1RF trazodone 50 mg tablet 100 mg PO .HS PRN (Reason: insomnia) Qty: 60 1RF Excedrin Extra Strength 250-250-65 mg tablet 1 tab PO Q6H PRN Tylenol Extra Strength 500 mg Tablet 500 - 1,000 mg PO PRN ondansetron HCl 4 mg tablet 4 mg PO Q8H PRN (Reason: nausea and vomiting) Qty: 14 0RF Discharge Orders: Discharge ED (Routine); Ordered 03/03/25 Ordered By: Loraine Panchal Discharge Diet: Usual diet Discharge Activity: Increase activity as tolerated Patient Instructions: Fever in Adults (ED), Opioid Safety, Pain Management, Patient Portal & Humberto Instructions Activity Restrictions/Additional Instructions: Thank you for choosing [facility] for your healthcare needs today. You have been screened and evaluated and felt safe for discharge. Health conditions do change or evolve sometimes and as such it is important that you follow up with your Primary Doctor to be re checked, 3-5 days is a general good time frame for follow up. 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
[2025-03-03 16:34] VITALS: BP 178/91; PULSE 97; RESP 16; O2SAT 100
== END 2025-03-03 16:34 | disposition home or self-care (01) ==
PROVIDERS: Emergency Provider Emergency Medicine
DX: B33.8 Other specified viral diseases (principal); Z72.0 Tobacco use
CPT/HCPCS: 99283; J8540; J9999

== ENCOUNTER 2025-03-08 18:32 | Emergency (ER) | payer MEDICAID, SELFPAY ==
[2024-10-01 16:00] VITALS: BP 147/73; BMI 34.3
[2025-03-08 18:39] VITALS: BP 131/73; PULSE 75; RESP 16; TEMP 36.7; O2SAT 98
--- NOTE | 2025-03-08 20:11 | ED_ITS ---
HPI - Nausea/Vomiting/Diarrhea 2 General: Chief complaint: Nausea/Vomiting/Diarrhea Stated complaint: Vomiting when eating Time Seen by Provider: 03/08/25 18:51 Source: patient Mode of arrival: ambulatory Limitations: no limitations History of Present Illness: Patient is a 24-year-old male presents to ED today with a complaint of nausea and vomiting after eating over the past 3 days. He states when he eats he sometimes will get epigastric pain and heartburn. He has not noted any obvious hematemesis. He was recently seen here for viral URI and placed on doxycycline and steroids. He states he does not partake in large amounts of anti- inflammatories or alcohol. No history of PUD. He has not tried any ywxc-bty-ramoxvw medications to help with discomfort. Upon arrival and during my initial examination, patient tells me he is currently asymptomatic and is not complaining of nausea or abdominal pain. MD elicited complaint: nausea, vomiting and abdominal pain Onset (ago): day(s) Description of vomiting: food contents Associated nausea: Yes Associated abdominal pain: Yes Location of pain: Epigastric Pain consistency: intermittent Severity: mild Exacerbating factors: eating Relieving factors: none Context: recent antibiotic use Associated symtoms: Reports nausea; Denies chest pain, dizziness, dysuria, fatigue, headache(s) or malaise Related Data Home Medications ?Medication ?Instructions ?Recorded ?Confirmed acetaminophen 500 mg tablet 500 - 1,000 mg PO PRN 12/2112/10/24 (Tylenol Extra Strength) nzayhms-kapbucqlybgdi-iedazcqz 250 1 tab PO Q6H PRN 12/10/24 mg-250 mg-65 mg tablet (Excedrin Extra Strength) Previous Rx's ?Medication ?Instructions ?Recorded fluoxetine 20 mg capsule (Prozac) 20 mg PO DAILY #30 c aps 09/07/24 trazodone 50 mg tablet 100 mg (2 x 50 mg) PO .HS KS N 09/07/24 insomnia #60 tabs ondansetron HCl 4 mg tablet 4 mg PO Q8H PRN nausea and 10/31/24 vomiting #14 tabs doxycycline hyclate 100 mg capsule 100 mg PO BID 7 day s #14 caps 03/03/25 ibuprofen 800 mg tablet 800 mg PO Q8H PRN pain #30 t abs 03/03/25 ondansetron 4 mg disintegrating 4 mg PO Q8H PRN nausea and 03/03/25 tablet vomiting #10 tabs ondansetron 4 mg disintegrating 4 mg PO Q8H PRN nausea and 03/08/25 tablet vomiting #14 tabs Allergies Allergy/AdvReac Type Severity Reaction Status Date / Time No Known Allergies Allergy Verified 02/09/25 20:45 Review of Systems 2 Const: Denies: fever(s), chills, body aches, fatigue or malaise Card: Denies: chest pain Resp: Denies: dyspnea GI: Reports: abdominal pain, nausea and vomiting; Denies: hematemesis or change in bowel habits : Denies: flank pain, dysuria or hematuria Musc: Denies: neck pain, back pain, extremity pain, extremity swelling, joint pain, joint swelling or joint redness Skin/Breast: Denies: rash Neuro: Denies: headache(s), numbness in extremities, weakness in extremities, sensory changes or dizziness PFSH ED 2 PFSH: Medical History Vapes nicotine containing substance Psychiatric care No significant past medical history Surgical History No significant past surgical history Social History Smoking and tobacco/nicotine status: current every day tobacco/nicotine user Alcohol intake: current Alcohol intake frequency: holidays/special occasions only Substance/Drug Use: current Substance/Drug use frequency: Special occassions/opportunity only Adopted: No Caregiver/support person: No Lives independently: No Household members: significant other Housing: House Marital status: Single Highest education level completed: Some College, No Degree Education level details: 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 service: No Current occupational status: employed 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 Current occupational exposures/hazards: No Pets and animals: No Do you think of yourself as: Straight/Heterosexual Current gender identity: Male Laurie/Scientology: None Special laurie needs: No Agree to transfusion: Yes Physical Exam 2 Const: COMMON NORMALS: no acute distress, patient oriented x3, no limitations, alert and well nourished GENERAL APPEARANCE: cooperative NUTRITIONAL APPEARANCE: obese ORIENTATION/CONSCIOUSNESS: Yes awake, Yes oriented to person, Yes oriented to place and Yes oriented to time HENMT: COMMON NORMALS: normocephalic and atraumatic HEAD & SCALP: normal to inspection, normocephalic and atraumatic Eye: COMMON NORMALS: no scleral icterus Neck/C-Spine: COMMON NORMALS: negative for no lymphadenopathy Resp: COMMON NORMALS: normal respiratory effort and clear to auscultation bilaterally AUSCULTATION: clear to auscultation bilaterally Cardio: COMMON NORMALS: regular rate and regular rhythm RATE: regular rate RHYTHM: regular rhythm GI: COMMON NORMALS: Normal to inspection, nondistended, normoactive bowel sounds present, Soft to palpation, No hepatosplenomegaly present and no masses INSPECTION: Yes normal to inspection AUSCULTATION: Yes normoactive bowel sounds PALPATION: Yes Soft to palpation, Yes Tenderness to palpation present (GI) (mild epigastric-non surgical evaluation ), No Guarding due to palpation present (GI), No Rigid due to palpation and Yes No hepatosplenomegaly present : COMMON NORMALS: Yes no CVA tenderness BLADDER/KIDNEY EXAM: Yes no CVA tenderness Back/Pelvis: COMMON NORMALS: no CVA tenderness Neuro: COMMON NORMALS: patient oriented x3 SENSORIUM/ORIENTATION: Yes alert, Yes oriented to person, Yes oriented to place and Yes oriented to time Course 2 Vital Signs: Vital signs: Vital Signs Temperature 98.0 F 03/08/25 18:39 Pulse Rate 75 03/08/25 18:39 Respiratory Rate 16 03/08/25 18:39 Blood Pressure 131/73 03/08/25 18:39 Pulse Oximetry 98 03/08/25 18:39 Oxygen Delivery Me thod Room Air 03/08/25 18:39 MDM - Nausea/Vomiting/Diarrhea Medical Decision Making Patient clinically appears in absolutely no acute distress. Abdomen is nonsurgical. He has not had any vomiting while here. Vital signs are stable. Blood work overall is nonactionable. I do not feel we need to undergo emergent imaging at this time. He will be given something to help with his nausea. Discussed dietary restrictions. Some of this could be caused by recent antibiotic use. He does take NSAIDs occasionally for headaches although denies using large amounts or frequently. Recommend he stop taking these. Discussed trial of cvem-tsb-dinpgzk H2 mohit/PPI which he seems agreeable to. Recommend follow-up with primary care. Return ED precautions discussed. Differential Diagnosis Likely gastroenteritis and drug-induced nausea and vomiting Medical Records I reviewed the patient's medical records. Lab Data I reviewed the patient's lab results. 03/08/25 20:48 03/08/25 20:48 Laboratory Results WBC 14.01 10^3/uL (3.29-11.43) H 03/08/25 20:48 RBC 4.91 10^6/uL (3.85-5.65) 03/08/25 20:48 Hgb 14.50 g/dL (11.27-16.99) 03/08/25 20:48 Hct 43.1 % (37-53) 03/08/25 20:48 MCV 87.8 fl (82-101) 03/08/25 20:48 MCH 29.5 pg (27-33) 03/08/25 20:48 MCHC 33.6 g/dL (30-55) 03/08/25 20:48 RDW 11.9 % (12.1-15.1) L 03/08/25 20:48 Plt Count 362 10^3/cmm (157-399) 03/08/25 20:48 MPV 9.2 fL (7.4-10.4) 03/08/25 20:48 Neut % (Auto) 61.5 % 03/08/25 20:48 Lymph % (Auto) 28.3 % 03/08/25 20:48 Hubbard % (Auto) 6.1 % 03/08/25 20:48 Eos % (Auto) 2.5 % 03/08/25 20:48 Baso % (Auto) 0.5 % 03/08/25 20:48 Neut # (Auto) 8.61 10^3/uL (1.8-7.7) H 03/08/25 20:48 Lymph # (Auto) 4.0 10^3/uL (0.8-4.8) 03/08/25 20:48 Hubbard # (Auto) 0.9 10^3/uL (0.2-0.9) 03/08/25 20:48 Eos # (Auto) 0.4 10^3/uL (0.0-0.8) 03/08/25 20:48 Baso # (Auto) 0.1 10^3/uL (0.0-0.1) 03/08/25 20:48 Nucleated RBC % (auto) 0 % 03/08/25 20:48 Nucleated RBCs # 0.0 /100WBC 03/08/25 20:48 Sodium 138 mmol/L (136-145) 03/08/25 20:48 Potassium 4.6 mmol/L (3.5-5.1) 03/08/25 20:48 Chloride 104 mmol/L (98-107) 03/08/25 20:48 Carbon Dioxide 25 mmol/L (22-29) 03/08/25 20:48 Anion Gap 13.6 (5-19) 03/08/25 20:48 BUN 16 mg/dL (6-20) 03/08/25 20:48 Creatinine 0.9 mg/dL (0.7-1.2) 03/08/25 20:48 GFR Calculation 102.8 mL/min (90-130) 03/08/25 20:48 Glucose 83 mg/dL (65-115) 03/08/25 20:48 Calculated Osmolality 286 mOsm/kg (285-295) 03/08/25 20:48 Calcium 9.1 mg/dL (8.5-10.5) 03/08/25 20:48 Total Bilirubin 0.3 mg/dL (0.15-1.2) 03/08/25 20:48 AST 24 U/L (0-40) 03/08/25 20:48 ALT 47 U/L (0-41) H 03/08/25 20:48 Alkaline Phosphatase 69 U/L (40-130) 03/08/25 20:48 Total Protein 6.9 g/dL (6.6-8.7) 03/08/25 20:48 Albumin 3.9 g/dL (3.5-5.2) 03/08/25 20:48 Globulin 3.0 g/dL (1.3-4.6) 03/08/25 20:48 Lipase 25 U/L (13-60) 03/08/25 20:48 No radiology studies performed this visit Discharge Plan Discharge Patient Disposition: Home Clinical Impression: Nausea & vomiting Qualifiers: Vomiting type: unspecified Qualified Code(s): R11.2 - Nausea with vomiting, unspecified Condition: Stable Prescriptions: New ondansetron 4 mg tablet,disintegrating 4 mg PO Q8H PRN (Reason: nausea and vomiting) Qty: 14 0RF No Action fluoxetine [Prozac] 20 mg capsule 20 mg PO DAILY Qty: 30 1RF trazodone 50 mg tablet 100 mg PO .HS PRN (Reason: insomnia) Qty: 60 1RF Excedrin Extra Strength 250-250-65 mg tablet 1 tab PO Q6H PRN Tylenol Extra Strength 500 mg Tablet 500 - 1,000 mg PO PRN ondansetron HCl 4 mg tablet 4 mg PO Q8H PRN (Reason: nausea and vomiting) Qty: 14 0RF doxycycline hyclate 100 mg capsule 100 mg PO BID 7 Days Qty: 14 0RF ibuprofen 800 mg tablet 800 mg PO Q8H PRN (Reason: pain) Qty: 30 0RF ondansetron 4 mg tablet,disintegrating 4 mg PO Q8H PRN (Reason: nausea and vomiting) Qty: 10 0RF Discharge Orders: Discharge ED (Routine); Ordered 03/08/25 Ordered By: Kelly Wall Referrals: Marshall Cano MD [Primary Care Provider, Family Practice] Patient Instructions: Patient Portal & Humberto Instructions Activity Restrictions/Additional Instructions: As we discussed, you may use the Zofran as needed for nausea and vomiting. Avoid spicy, acidic, salty foods. I would avoid taking anti-inflammatories for the next few weeks. We discussed potentially trying gxkv-nch-odlhnur medications such as Pepcid or Omeprazole to see if this helps with symptoms. We discussed signs and symptoms that should prompt you to return to the emergency department. Otherwise I feel you can safely follow-up with your primary care provider. 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
[2025-03-08 20:53] LABS: Hematocrit 43.1 % (37-53); Hemoglobin 14.50 g/dL (11.27-16.99); Mean Corpuscular HGB Conc 33.6 g/dL (30-55); Mean Corpuscular Hemoglobin 29.5 pg (27-33); Mean Corpuscular Volume 87.8 fl (82-101); Nucleated Red Blood Cells % 0 %; Platelet Count 362 10^3/cmm (157-399); Red Blood Count 4.91 10^6/uL (3.85-5.65); White Blood Count 14.01 10^3/uL (3.29-11.43)
[2025-03-08 21:10] LABS: Alanine Aminotransferase 47 U/L (0-41); Albumin Level 3.9 g/dL (3.5-5.2); Alkaline Phosphatase 69 U/L (40-130); Anion Gap 13.6 (5-19); Aspartate Amino Transferase 24 U/L (0-40); Blood Urea Nitrogen 16 mg/dL (6-20); Calcium 9.1 mg/dL (8.5-10.5); Carbon Dioxide 25 mmol/L (22-29); Chloride 104 mmol/L (98-107); Globulin 3.0 g/dL (1.3-4.6); Glucose 83 mg/dL (65-115); Lipase 25 U/L (13-60); Osmolality Calculated 286 mOsm/kg (285-295); Potassium 4.6 mmol/L (3.5-5.1); Sodium 138 mmol/L (136-145); Total Protein 6.9 g/dL (6.6-8.7)
[2025-03-08 21:44] VITALS: BP 114/66; PULSE 60; RESP 16; O2SAT 100
== END 2025-03-08 21:45 | disposition home or self-care (01) ==
PROVIDERS: Emergency Provider Physician Assistant; PCP Family Medicine
DX: R11.2 Nausea with vomiting, unspecified (principal); Z72.0 Tobacco use
CPT/HCPCS: 36415; 80053; 83690; 85025; 99283